=== PATIENT | male | born 1960 | race Caucasian/White ===

== ENCOUNTER 2017-08-21 14:17 | Inpatient (IN) | payer BC, OTHER ==
[2017-08-21] VITALS (8 sets, daily range): BP systolic 137–156; BP diastolic 78–92; PULSE 72–85; RESP 16–22; TEMP 98–98.4; O2SAT 92–97
[~2017-08-21] VITALS: Ht 180.3 cm; Wt 112.0 kg
[~2017-08-21 14:17] MED LIST: ATEN-100 PO; ESZO3 PO; FENO1TAB76 PO; LAMI200T PO; LEVA250T14 PO; LIPI80TA16 PO; LORA0.5T PO; NITR0.2D TD; OMEG1CAP53 PO; SERO100T PO; SERT100 PO; TRAM100T19 PO; VERA27.5
[2017-08-21] MEDS ORDERED: methylPREDNISolone SOD SUCC 125 MG/2 ML VIAL IV PUSH ONE (14:45)
[2017-08-21] MEDS ORDERED: SODIUM CHLORIDE 0.9% FLUSH 10 ML FLUSH IVF PRN (14:45)
[2017-08-21] MEDS: RESP: ALBUTEROL 2.5 MG/3 ML NEB (SCH) INH ×2 (14:45→15:00)
--- NOTE | 2017-08-21 14:54 | PD ---
HPI Chief Complaint: Chest Pain Time Seen by Provider: 14:44 Travel History International Travel<30 days: No Contact w/Intl Traveler<30days: No Traveled to known affect area: No History of Present Illness HPI 57-year-old male with PMH of CAD s/p stenting of the LAD presents to the ED for evaluation of sudden onset of central chest pain at 1355 while at rest Pain is described as sharp, nonradiating, accompanied by shortness of breath, diaphoresis. Patient denies palpitations, nausea. Patient states he was feeling in good health before onset of this pain. Denies coughing or hemoptysis. He states that he vapes tobacco. He took 325 mg of aspirin and sublingual nitroglycerin 3 with no improvement of symptoms. He denies other chronic medical problems. 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 Repeat every 5 minutes for a total of 3 DOSES or call 911 if NO relief. Lipitor (Atorvastatin Calcium) 80 Mg Tab 80 Mg PO HS Tenormin (Atenolol) 25 Mg Tab 25 Mg PO BID Tricor (Fenofibrate) 145 Mg Tab 145 Mg PO DAILY Take with food. Nabumetone 750 Mg Tab 750 Mg PO BID Zoloft (Sertraline HCl) 100 Mg Tab 200 Mg PO DAILY Lamictal (Lamotrigine) 200 Mg Tab 200 Mg PO DAILY Seroquel (Quetiapine Fumarate) 100 Mg Tab 100 Mg PO BID Review of Systems Except as stated in HPI: all other systems reviewed are Neg Physical Exam Narrative GENERAL: Well-nourished, well-developed white male in no acute distress. SKIN: Focused skin assessment warm, diaphoretic HEAD: Normocephalic. EYES: No scleral icterus. No injection or drainage. NECK: Supple, trachea midline. No JVD or lymphadenopathy. CARDIOVASCULAR: Regular rate and rhythm without murmurs, gallops, or rubs. RESPIRATORY: Breath sounds diminished in the right lower lobe. Wet sounding cough. No accessory muscle use. GASTROINTESTINAL: Abdomen soft, nondistended. Tender in the epigastric region. Active bowel sounds. MUSCULOSKELETAL: No cyanosis, or edema. BACK: Nontender without obvious deformity. No CVA tenderness. Data Data Last Documented VS Vital Signs Date Time Temp Pulse Resp B/P (MAP) Pulse Ox O2 Delivery O2 Flow Rate FiO2 08/21/17 15:39 96 3.00 08/21/17 14:41 Nasal Cannula 08/21/17 14:41 98.0 80 16 138/87 (104) Orders Orders Electrocardiogram (08/21/17 14:36) B-Type Natriuretic Peptide (08/21/17 14:36) Ckmb (Isoenzyme) Profile (08/21/17 14:36) Complete Blood Count With Diff (08/21/17 14:36) Comprehensive Metabolic Panel (08/21/17 14:36) Magnesium (Mg) (08/21/17 14:36) Prothrombin Time / Inr (Pt) (08/21/17 14:36) Act Partial Throm Time (Ptt) (08/21/17 14:36) Troponin I (08/21/17 14:36) Chest, Single Ap (08/21/17 14:36) Ecg Monitoring (08/21/17 14:36) Bilateral Bp Monitoring (08/21/17 14:36) Iv Access Insert/Monitor (08/21/17 14:36) Oximetry (08/21/17 14:36) Oxygen Administration (08/21/17 14:36) Sodium Chloride 0.9% Flush (Ns Flush) (08/21/17 14:45) Methylprednisolone So Succ Inj (Solumedr (08/21/17 14:45) Albuterol Neb (Albuterol Neb) (08/21/17 14:45) Midazolam Inj (Versed Inj) (08/21/17 15:15) Hydromorphone Pf Inj (Dilaudid Pf Inj) (08/21/17 15:15) Chest, Single Ap (08/21/17 ) CKMB (08/21/17 14:30) CKMB% (08/21/17 14:30) Hydromorphone Pf Inj (Dilaudid Pf Inj) (08/21/17 16:00) Admit To Inpatient (08/21/17 ) Code Status (08/21/17 16:18) Vital Signs (Adult) Q4H (08/21/17 16:18) Activity Oob With Assistance (08/21/17 16:18) Supervisor [employer] / Telemetry .CONTINUOUS (08/21/17 16:18) Diet Heart Healthy (08/21/17 Dinner) Sodium Chloride 0.9% Flush (Ns Flush) (08/21/17 16:30) Sodium Chloride 0.9% Flush (Ns Flush) (08/21/17 21:00) Acetaminophen (Tylenol) (08/21/17 16:30) Ondansetron Inj (Zofran Inj) (08/21/17 16:30) Temazepam (Restoril) (08/21/17 16:30) Basic Metabolic Panel (Bmp) (08/22/17 06:00) Complete Blood Count With Diff (08/22/17 06:00) Chest, Single Ap (08/22/17 08:00) Electrocardiogram (08/21/17:18) Resp Oxygen Ralf C Titrat 1-4 L (08/21/17 ) Pt Request For Service (08/21/17 16:18) Scd Bilateral/Knee High EUGENIA.BID (08/21/17 16:18) Naloxone Inj (Narcan Inj) (08/21/17 16:30) Magnesium Hydroxide Liq (Milk Of Magnesi (08/21/17 16:30) Inpatient Certification (08/21/17 ) Atenolol (Tenormin) (08/21/17 21:00) Atorvastatin (Lipitor) (08/21/17 21:00) Fenofibrate (Tricor) (08/21/17 16:30) Lamotrigine (Lamictal) (08/22/17 09:00) Nitroglycerin Sl (Nitrostat Sl) (08/21/17 16:30) Quetiapine (Seroquel) (08/21/17 21:00) Sertraline (Zoloft) (08/22/17 09:00) Admit Order (Ed Use Only) (08/21/17 16:26) Labs Laboratory Tests Test 08/21/17 14:30 White Blood Count 6.0 TH/MM3 Red Blood Count 4.41 MIL/MM3 Hemoglobin 13.5 GM/DL Hematocrit 38.0 % Mean Corpuscular Volume 86.3 FL Mean Corpuscular Hemoglobin 30.6 PG Mean Corpuscular Hemoglobin Concent 35.5 % Red Cell Distribution Width 14.1 % Platelet Count 248 TH/MM3 Mean Platelet Volume 8.5 FL Neutrophils (%) (Auto) 64.2 % Lymphocytes (%) (Auto) 24.3 % Monocytes (%) (Auto) 8.4 % Eosinophils (%) (Auto) 2.3 % Basophils (%) (Auto) 0.8 % Neutrophils # (Auto) 3.9 TH/MM3 Lymphocytes # (Auto) 1.5 TH/MM3 Monocytes # (Auto) 0.5 TH/MM3 Eosinophils # (Auto) 0.1 TH/MM3 Basophils # (Auto) 0.0 TH/MM3 CBC Comment DIFF FINAL Differential Comment Prothrombin Time 10.5 SEC Prothromb Time International Ratio 1.0 RATIO Activated Partial Thromboplast Time 23.1 SEC Blood Urea Nitrogen 11 MG/DL Creatinine 1.16 MG/DL Random Glucose 119 MG/DL Total Protein 7.3 GM/DL Albumin 4.2 GM/DL Calcium Level 9.0 MG/DL Magnesium Level 2.0 MG/DL Alkaline Phosphatase 83 U/L Aspartate Amino Transf (AST/SGOT) 22 U/L Alanine Aminotransferase (ALT/SGPT) 43 U/L Total Bilirubin 0.5 MG/DL Sodium Level 141 MEQ/L Potassium Level 4.0 MEQ/L Chloride Level 109 MEQ/L Carbon Dioxide Level 25.2 MEQ/L Anion Gap 7 MEQ/L Estimat Glomerular Filtration Rate 65 ML/MIN Total Creatine Kinase 140 U/L Creatine Kinase MB 2.7 NG/ML Troponin I LESS THAN 0.02 NG/ML B-Type Natriuretic Peptide 29 PG/ML MDM Medical Decision Making Medical Screen Exam Complete: Yes Emergency Medical Condition: Yes Differential Diagnosis Angina versus chest pain versus CHF versus pneumonia versus pneumothorax versus other Narrative Course 57-year-old male with PMH of CAD s/p stenting of the LAD presents to the ED for evaluation of sudden onset of central chest pain at 1355 while at rest Pain is described as sharp, nonradiating, accompanied by shortness of breath, diaphoresis. He states that he vapes tobacco. He took 325 mg of aspirin and sublingual nitroglycerin 3 with no improvement of symptoms. Pulse 85, BP 138/ 87, pulse ox 92% on room air on presentation. Patient was placed on 2 L by nasal cannula. On exam this is a diaphoretic obese white male in no acute distress. No appreciable M/R/G. He does have diminished breath sounds on the right. He also has a wet sounding cough. Abdomen soft, mild tenderness in the epigastric region. No lower extremity edema. IV was established. Patient was administered 125 mg Solu-Medrol and DuoNeb 2. EKG rate 76, sinus rhythm. KS interval 206, QRS 112, QTC 407. Normal axis. No acute ST changes. Reviewed by Dr. Cox. CXR: Large right-sided pneumothorax with complete collapse of the right long and minimal mediastinal shift to the left suggesting some degree of tension per radiology read. Dr. Cox inserted a chest tube. O2 sats improved to 96%. Repeat CXR reveals interval reinflation of the right lung post chest tube placement per radiology read. No concerning abnormalities of the CBC, coags or CMP. Cardiac enzymes negative 1. BNP 29. Patient is agreeable to admission for chest tube management. I spoke with Dr. Vaughan who agrees to accept the patient to the medicine service. Please see medicine notes for disposition. Re Rios Aug 21, 2017 14:54
--- NOTE | 2017-08-21 15:07 | RADRPT ---
EXAM DATE/TIME: 08/21/2017 14:43 [facility] COMPARISON: CHEST SINGLE AP, September 21, 2014, 0:47. INDICATIONS : Chest pain. MEDICAL HISTORY : None. SURGICAL HISTORY : None. ENCOUNTER: Initial ACUITY: 1 day PAIN SCORE: 5/10 LOCATION: Bilateral chest FINDINGS: There is a very large right-sided pneumothorax with complete collapse of the right lung. There is min imal mediastinal shift to the left suggesting some degree of tension. CONCLUSION: Very large right-sided pneumothorax with complete collapse of the right lung and minimal mediastinal shift to the left suggesting some degree of tension. Dr. Cox was called with the findings 3: 05 P.M. on 08/21/17. Krishan Roberts MD on August 21, 2017 at 15:00 Board Certified Radiologist. This report was verified electronically.
[2017-08-21] MEDS ORDERED: MIDAZOLAM HCL 2 MG/2 ML VIAL IV PUSH ONE (15:15)
[2017-08-21] MEDS ORDERED: HYDROmorphone HCL PF 2 MG/ML VIAL IV PUSH ONE ×3 (15:15→17:00)
[2017-08-21 15:24] LABS: PROTHROMBIN TIME - PATIENT 10.5 SEC (9.8-11.6)
[2017-08-21] MEDS ORDERED: LAMI200T PO (15:30)
[2017-08-21] MEDS ORDERED: NABU1TAB33 PO (15:30)
[2017-08-21] MEDS ORDERED: LORA-474 PO (15:30)
[2017-08-21] MEDS ORDERED: NITR0.4S SL (15:30)
[2017-08-21] MEDS ORDERED: ATEN1TAB73 PO (15:30)
[2017-08-21] MEDS ORDERED: LIPI80TA PO (15:30)
[2017-08-21] MEDS ORDERED: ZOLO100T PO (15:30)
[2017-08-21] MEDS ORDERED: FENO50TA PO (15:30)
[2017-08-21] MEDS ORDERED: SERO100T PO (15:30)
[2017-08-21 15:31] LABS: AUTOMATED NEUTROPHIL # 3.9 TH/MM3 (1.8-7.7); BASOPHIL % 0.8 % (0.0-2.0); EOSINOPHIL # 0.1 TH/MM3 (0-0.4); EOSINOPHIL % 2.3 % (0.0-4.0); HEMOGLOBIN 13.5 GM/DL (13.0-17.0); LYMPH % 24.3 % (9.0-44.0); LYMPHOCYTE # 1.5 TH/MM3 (1.0-4.8); MEAN CELL VOLUME 86.3 FL (80.0-100.0); MEAN CORPUSCULAR HEMOGLOBIN 30.6 PG (27.0-34.0); MEAN CORPUSCULAR HGB CONC 35.5 % (32.0-36.0); MEAN PLATELET VOLUME 8.5 FL (7.0-11.0); MONO % 8.4 % (0.0-8.0); MONOCYTE # 0.5 TH/MM3 (0-0.9); NEUT % 64.2 % (16.0-70.0); PLATELET COUNT 248 TH/MM3 (150-450); RED BLOOD COUNT 4.41 MIL/MM3 (4.50-5.90); RED CELL DISTRIBUTION WIDTH 14.1 % (11.6-17.2)
[2017-08-21 15:33] LABS: ALBUMIN 4.2 GM/DL (3.4-5.0); ALT (GPT) 43 U/L (12-78); AST (GOT) 22 U/L (15-37); BICARBONATE 25.2 MEQ/L (21.0-32.0); BLOOD UREA NITROGEN 11 MG/DL (7-18); CHLORIDE 109 MEQ/L (98-107); CREATININE 1.16 MG/DL (0.60-1.30); GLOMERULAR FILTRATION RATE 65 ML/MIN (>89); GLUCOSE,RANDOM 119 MG/DL (74-106); SODIUM (NA) 141 MEQ/L (136-145)
[2017-08-21 15:37] LABS: ALKALINE PHOSPHATASE 83 U/L (45-117); TOTAL BILIRUBIN ADULT 0.5 MG/DL (0.2-1.0); TOTAL PROTEIN 7.3 GM/DL (6.4-8.2); TROPONIN I LESS THAN 0.02 NG/ML (0.02-0.05)
--- NOTE | 2017-08-21 15:47 | PD ---
Physical Exam Narrative I, Dr. Cox, have reviewed the advance practice practitioner's documentation and am in agreement, met with the patient face to face, made the diagnosis, and the medical decision making was done by me. *My assessment and Findings: Patient is a 57-year-old male who comes in complaining of chest pain. He says it is either "a heart attack or my lung is collapsed." This started just prior to arrival. He does report some shortness of breath. He denies any trauma, he does vape. Exam shows decreased breath sounds on the right. Data Data Last Documented VS Vital Signs Date Time Temp Pulse Resp B/P (MAP) Pulse Ox O2 Delivery O2 Flow Rate FiO2 08/21/17 15:39 96 3.00 08/21/17 14:41 Nasal Cannula 08/21/17 14:41 98.0 80 16 138/87 (104) Orders Orders Electrocardiogram (08/21/17 14:36) B-Type Natriuretic Peptide (08/21/17 14:36) Ckmb (Isoenzyme) Profile (08/21/17 14:36) Complete Blood Count With Diff (08/21/17 14:36) Comprehensive Metabolic Panel (08/21/17 14:36) Magnesium (Mg) (08/21/17 14:36) Prothrombin Time / Inr (Pt) (08/21/17 14:36) Act Partial Throm Time (Ptt) (08/21/17 14:36) Troponin I (08/21/17 14:36) Chest, Single Ap (08/21/17 14:36) Ecg Monitoring (08/21/17 14:36) Bilateral Bp Monitoring (08/21/17 14:36) Iv Access Insert/Monitor (08/21/17 14:36) Oximetry (08/21/17 14:36) Oxygen Administration (08/21/17 14:36) Sodium Chloride 0.9% Flush (Ns Flush) (08/21/17 14:45) Methylprednisolone So Succ Inj (Solumedr (08/21/17 14:45) Albuterol Neb (Albuterol Neb) (08/21/17 14:45) Midazolam Inj (Versed Inj) (08/21/17 15:15) Hydromorphone Pf Inj (Dilaudid Pf Inj) (08/21/17 15:15) Chest, Single Ap (08/21/17 ) CKMB (08/21/17 14:30) CKMB% (08/21/17 14:30) Hydromorphone Pf Inj (Dilaudid Pf Inj) (08/21/17 16:00) Admit To Inpatient (08/21/17 ) Code Status (08/21/17 16:18) Vital Signs (Adult) Q4H (08/21/17:18) Activity Oob With Assistance (08/21/17 16:18) 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 .CONTINUOUS (08/21/17 16:18) Diet Heart Healthy (08/21/17 Dinner) Sodium Chloride 0.9% Flush (Ns Flush) (08/21/17 16:30) Sodium Chloride 0.9% Flush (Ns Flush) (08/21/17 21:00) Acetaminophen (Tylenol) (08/21/17 16:30) Ondansetron Inj (Zofran Inj) (08/21/17 16:30) Temazepam (Restoril) (08/21/17 16:30) Basic Metabolic Panel (Bmp) (08/22/17 06:00) Complete Blood Count With Diff (08/22/17 06:00) Chest, Single Ap (08/22/17 08:00) Electrocardiogram (08/21/17:18) Resp Oxygen Ralf C Titrat 1-4 L (08/21/17 ) Pt Request For Service (08/21/17 16:18) Scd Bilateral/Knee High EUGENIA.BID (08/21/17 16:18) Naloxone Inj (Narcan Inj) (08/21/17 16:30) Magnesium Hydroxide Liq (Milk Of Magnesi (08/21/17 16:30) Inpatient Certification (08/21/17 ) Atenolol (Tenormin) (08/21/17 21:00) Atorvastatin (Lipitor) (08/21/17 21:00) Fenofibrate (Tricor) (08/21/17 16:30) Lamotrigine (Lamictal) (08/22/17 09:00) Nitroglycerin Sl (Nitrostat Sl) (08/21/17 16:30) Quetiapine (Seroquel) (08/21/17 21:00) Sertraline (Zoloft) (08/22/17 09:00) Admit Order (Ed Use Only) (08/21/17 16:26) Labs Laboratory Tests Test 08/21/17 14:30 White Blood Count 6.0 TH/MM3 Red Blood Count 4.41 MIL/MM3 Hemoglobin 13.5 GM/DL Hematocrit 38.0 % Mean Corpuscular Volume 86.3 FL Mean Corpuscular Hemoglobin 30.6 PG Mean Corpuscular Hemoglobin Concent 35.5 % Red Cell Distribution Width 14.1 % Platelet Count 248 TH/MM3 Mean Platelet Volume 8.5 FL Neutrophils (%) (Auto) 64.2 % Lymphocytes (%) (Auto) 24.3 % Monocytes (%) (Auto) 8.4 % Eosinophils (%) (Auto) 2.3 % Basophils (%) (Auto) 0.8 % Neutrophils # (Auto) 3.9 TH/MM3 Lymphocytes # (Auto) 1.5 TH/MM3 Monocytes # (Auto) 0.5 TH/MM3 Eosinophils # (Auto) 0.1 TH/MM3 Basophils # (Auto) 0.0 TH/MM3 CBC Comment DIFF FINAL Differential Comment Prothrombin Time 10.5 SEC Prothromb Time International Ratio 1.0 RATIO Activated Partial Thromboplast Time 23.1 SEC Blood Urea Nitrogen 11 MG/DL Creatinine 1.16 MG/DL Random Glucose 119 MG/DL Total Protein 7.3 GM/DL Albumin 4.2 GM/DL Calcium Level 9.0 MG/DL Magnesium Level 2.0 MG/DL Alkaline Phosphatase 83 U/L Aspartate Amino Transf (AST/SGOT) 22 U/L Alanine Aminotransferase (ALT/SGPT) 43 U/L Total Bilirubin 0.5 MG/DL Sodium Level 141 MEQ/L Potassium Level 4.0 MEQ/L Chloride Level 109 MEQ/L Carbon Dioxide Level 25.2 MEQ/L Anion Gap 7 MEQ/L Estimat Glomerular Filtration Rate 65 ML/MIN Total Creatine Kinase 140 U/L Creatine Kinase MB 2.7 NG/ML Troponin I LESS THAN 0.02 NG/ML B-Type Natriuretic Peptide 29 PG/ML [facility] Supervised Visit with JOSE: Yes Narrative Course Chest x-ray shows complete pneumothorax on the right. Chest tube placed without incident, patient reports feeling better, lung did reinflate. He will be admitted for further management. Procedures Procedure Narrative CHEST TUBE THORACOSTOMY: The right chest was prepped with Betadine and sterilely draped. The area of the fifth intercostal interspace was infiltrated with 1% lidocaine plain. A 2 centimeter incision was made with a scalpel at the fifth intercostal space. Blunt dissection to the fourth intercostal interspace performed and the pleura was punctured with immediate juan of air. Finger was inserted in the space and thoracostomy tube was placed, directed posteriorly and superiorly. Tube draining well. The thoracostomy tube was secured with suture. Sterile seal dressing placed. Patient tolerated procedure well. Diagnosis Primary Impression: Pneumothorax Qualified Codes: J93.9 - Pneumothorax, unspecified Admitting Information Admitting Physician Requests: Admit Mayra Cox MD Aug 21, 2017 15:47
--- NOTE | 2017-08-21 16:04 | RADRPT ---
EXAM DATE/TIME: 08/21/2017 15:53 [facility] COMPARISON: CHEST SINGLE AP, August 21, 2017, 14:43. INDICATIONS : Pneumothorax, chest tube placement. MEDICAL HISTORY : Myocardial infarction. SURGICAL HISTORY : None. ENCOUNTER: Subsequent ACUITY: 1 day PAIN SCORE: 4/10 LOCATION: Right chest FINDINGS: There is interval placement of a right-sided chest tube. There has been reexpansion of the right lung . The left lung is clear. The heart is normal in size. The osseous structures are intact. CONCLUSION: 1. Interval reinflation of the right lung post chest tube placement. Alfredo Blackmon MD on August 21, 2017 at 16:01 Board Certified Radiologist. This report was verified electronically.
[2017-08-21] MEDS ORDERED: TEMAZEPAM 15 MG CAP PO PRN (16:30)
[2017-08-21] MEDS ORDERED: NALOXONE HCL 0.4 MG/ML AMP IV PUSH PRN (16:30)
[2017-08-21] MEDS ORDERED: ACETAMINOPHEN 325 MG TAB PO PRN (16:30)
[2017-08-21] MEDS ORDERED: SODIUM CHLORIDE 0.9% FLUSH 10 ML FLUSH IV FLUSH PRN (16:30)
[2017-08-21] MEDS ORDERED: NITROGLYCERIN 0.4 MG SL 25 TABS/BTL SL PRN (16:30)
[2017-08-21] MEDS ORDERED: ONDANSETRON HCL 4 MG/2 ML VIAL IVP PRN (16:30)
[2017-08-21] MEDS ORDERED: ACETAMINOPHEN/HYDROcodone 325 MG/5 MG TAB PO PRN (17:00)
[2017-08-21] MEDS: ATENOLOL 25 MG TAB PO SCH (20:10)
[2017-08-21] MEDS: ATORVASTATIN 80 MG TAB PO SCH (20:10)
[2017-08-21] MEDS: FENOFIBRATE 145 MG TAB PO SCH (20:10)
[2017-08-21] MEDS: QUEtiapine FUMARATE 100 MG TAB PO SCH (20:10)
[2017-08-21] MEDS: SODIUM CHLORIDE 0.9% FLUSH 10 ML FLUSH IV FLUSH SCH (20:10)
[2017-08-21] MEDS: ACETAMINOPHEN/HYDROcodone 325 MG/10 MG TAB PO PRN (22:36)
[2017-08-21] MEDS: LORazepam 1 MG TAB PO PRN (23:24)
[2017-08-22] VITALS (18 sets, daily range): BP systolic 149–171; BP diastolic 81–90; PULSE 53–77; RESP 18–20; TEMP 97.6–98.5; O2SAT 94–98
[2017-08-22] MEDS: MORPHINE SULFATE 4 MG/ML INJ IV PRN ×5 (01:16→20:44)
[2017-08-22] MEDS: ACETAMINOPHEN/HYDROcodone 325 MG/10 MG TAB PO PRN (05:24)
[2017-08-22 07:26] LABS: AUTOMATED NEUTROPHIL # 6.4 TH/MM3 (1.8-7.7); BASOPHIL % 0.1 % (0.0-2.0); EOSINOPHIL % 0.1 % (0.0-4.0); HEMATOCRIT 36.3 % (39.0-51.0); HEMOGLOBIN 12.6 GM/DL (13.0-17.0); LYMPH % 11.2 % (9.0-44.0); LYMPHOCYTE # 0.9 TH/MM3 (1.0-4.8); MEAN CELL VOLUME 86.2 FL (80.0-100.0); MEAN CORPUSCULAR HEMOGLOBIN 29.9 PG (27.0-34.0); MEAN CORPUSCULAR HGB CONC 34.7 % (32.0-36.0); MEAN PLATELET VOLUME 8.4 FL (7.0-11.0); MONO % 5.7 % (0.0-8.0); MONOCYTE # 0.4 TH/MM3 (0-0.9); NEUT % 82.9 % (16.0-70.0); PLATELET COUNT 240 TH/MM3 (150-450); RED BLOOD COUNT 4.21 MIL/MM3 (4.50-5.90); RED CELL DISTRIBUTION WIDTH 13.8 % (11.6-17.2); WHITE BLOOD COUNT 7.8 TH/MM3 (4.0-11.0)
[2017-08-22 07:56] LABS: BICARBONATE 24.9 MEQ/L (21.0-32.0); CALCIUM 8.6 MG/DL (8.5-10.1); CREATININE 1.11 MG/DL (0.60-1.30)
[2017-08-22] MEDS: SODIUM CHLORIDE 0.9% FLUSH 10 ML FLUSH IV FLUSH SCH ×2 (09:00→20:45)
--- NOTE | 2017-08-22 09:09 | HHI.HP ---
HPI Service [facility] Hospitalists Primary Care Physician Jarret Serra MD Admission Diagnosis spontaneous pneumothorax Chief Complaint: Chest pain Travel History International Travel<30 Days: No Contact w/Intl Traveler <30 Da: No Traveled to Known Affected Are: No History of Present Illness This is a 57-year-old male patient with past medical history which includes CAD status post IN in 1998 with stent placement, repeat cardiac catheterization around 2011 pound stent restenosis treated medically, detached retina, left clavicle fracture, hypertension, hyperlipidemia, bipolar, migraines and osteoarthritis. She presented to the emergency room department yesterday after having sudden onset of central chest pain approximately 2 PM while at rest. Patient described the chest pain as sharp nonradiating, being by shortness of breath and diaphoresis. Patient reports prior to the sudden onset of chest pain he was in his normal state of health denies fevers chills nausea vomiting diarrhea constipation. Patient take aspirin 325 mg at home and sublingual nitroglycerin 3 with no improvement of symptoms therefore he proceeded to the emergency department. Chest x-ray was taken and revealed very large right- sided pneumothorax with complete collapse of the right lung and minimal mediastinal shift to the left suggesting some degree of tension. Chest tube was placed in the emergency department. Repeat chest x-ray revealed interval reinflation of the right lung post chest tube placement. Patient reports he is no longer having the severe midsternal chest pain that brought him to the emergency department. Patient c/o back pain R>L. Patient describes the pain as , "inside...feels like the muscles are tight." Pain decreased with morphine. Review of Systems Constitutional: COMPLAINS OF: Diaphoretic episodes, DENIES: Fever, Chills Eyes: DENIES: Blurred vision, Diplopia Respiratory: COMPLAINS OF: Shortness of breath, DENIES: Cough Cardiovascular: COMPLAINS OF: Chest pain, DENIES: Palpitations, Lower Extremity Edema Gastrointestinal: DENIES: Abdominal pain, Constipation, Diarrhea, Nausea, Vomiting Neurologic: DENIES: Abnormal gait, Headache, Localized weakness Psychiatric: DENIES: Anxiety, Confusion, Depression Past Family Social History Past Medical History CAD status post IN in 1999 with stent placement, repeat cardiac catheterization 2011 pound stent restenosis treated medically, detached retina, left clavicle fracture, hypertension, hyperlipidemia, bipolar, migraines and osteoarthritis. Past Surgical History Cardiac catheterization in 1999 with stent placement, repeat cardiac catheterization 2011 with stent restenosis treated medically Repair of right retinal detachment Right ankle surgery and repair Reported Medications Ativan (Lorazepam) 1 Mg Tab 1 Mg PO TID PRN Nitrostat SL (Nitroglycerin) 0.4 Mg Subl 0.4 Mg SL DIRECTED PRN 1 tablet under the tongue as needed for chest pain. Repeat every 5 minutes for a total of 3 DOSES or call 911 if NO relief. Lipitor (Atorvastatin Calcium) 80 Mg Tab 80 Mg PO HS Tenormin (Atenolol) 25 Mg Tab 25 Mg PO BID Tricor (Fenofibrate) 145 Mg Tab 145 Mg PO DAILY Take with food. Nabumetone 750 Mg Tab 750 Mg PO BID Zoloft (Sertraline HCl) 100 Mg Tab 200 Mg PO DAILY Lamictal (Lamotrigine) 200 Mg Tab 200 Mg PO DAILY Seroquel (Quetiapine Fumarate) 100 Mg Tab 100 Mg PO BID Allergies: Coded Allergies: penicillin G (Verified Allergy, Intermediate, Hives, 08/21/17) Active Ordered Medications Current Medications Medications (Trade) Dose Ordered Sig/Emmanuelle Route Start Time Stop Time Status Last Admin (NS Flush) 2 ml UNSCH PRN IVF 08/21/17 14:45 08/21/17 14:44 (NS Flush) 2 ml UNSCH PRN IV FLUSH 08/21/17 16:30 (NS Flush) 2 ml BID IV FLUSH 08/21/17 21:00 (Tylenol) 650 mg Q4H PRN PO 08/21/17 16:30 (Zofran Inj) 4 mg Q6H PRN IVP 08/21/17 16:30 (Restoril) 15 mg HS PRN PO 08/21/17 16:30 08/22/17 00:17 (Narcan Inj) 0.4 mg UNSCH PRN IV PUSH 08/21/17 16:30 (Milk Of Magnesia Liq) 30 ml Q12H PRN PO 08/21/17 16:30 (Tenormin) 25 mg BID PO 08/21/17 21:00 08/21/17 20:10 (Lipitor) 80 mg HS PO 08/21/17 21:00 08/21/17 20:10 (Tricor) 145 mg DAILY PO 08/21/17 16:30 08/21/17 20:10 (LaMICtal) 200 mg DAILY PO 08/22/17 09:00 (Nitrostat Sl) 0.4 mg Q1H PRN SL 08/21/17 16:30 (SEROquel) 100 mg BID PO 08/21/17 21:00 08/21/17 20:10 (Zoloft) 200 mg DAILY PO 08/22/17 09:00 (Morse 10-325 Mg) 1 tab Q4H PRN PO 08/21/17 21:30 08/22/17 05:24 (Ativan) 1 mg Q8H PRN PO 08/21/17 21:30 08/21/17 23:24 (Morphine Inj) 4 mg Q4H PRN IV 08/22/17 01:00 08/22/17 07:49 Family History Mother secondary CAD she also had history of emphysema and tobacco abuse Sister had IN at age 51 Social History Patient is he has no 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 Currently using E cigarettes/Vaping Denies EtOH use or illicit drug use Physical Exam Vital Signs Vital Signs Date Time Temp Pulse Resp B/P (MAP) Pulse Ox O2 Delivery O2 Flow Rate FiO2 08/22/17 08:00 98.0 61 18 161/89 (113) 95 08/22/17 06:00 77 08/22/17 05:00 61 08/22/17 04:00 65 08/22/17 03:00 97.6 64 18 156/82 (106) 97 08/22/17 03:00 64 08/22/17 02:00 67 08/22/17 01:21 18 08/22/17 01:00 60 08/22/17 00:00 72 08/21/17 23:36 20 08/21/17 23:00 76 08/21/17 23:00 98.2 75 22 137/83 (101) 94 08/21/17 22:00 72 08/21/17 21:00 98.2 79 20 156/92 (113) 95 08/21/17 21:00 76 08/21/17 20:00 96 Nasal Cannula 3.00 08/21/17 19:34 20 08/21/17 19:20 98.4 73 22 148/78 (101) 97 Room Air 08/21/17 15:39 96 3.00 08/21/17 14:41 94 Nasal Cannula 2.00 08/21/17 14:41 98.0 80 16 138/87 (104) 94 Nasal Cannula 2.00 08/21/17 14:28 80 18 93 Nasal Cannula 2.00 08/21/17 14:25 85 16 138/87 (104) 92 Physical Exam GENERAL: This is a well-nourished, well-developed patient, in no apparent distress. SKIN: No rashes, ecchymoses or lesions. Cool and dry. HEAD: Atraumatic. Normocephalic. No temporal or scalp tenderness. EYES: Extraocular motions intact. No scleral icterus. No injection or drainage. CARDIOVASCULAR: Regular rate and rhythm RESPIRATORY: Clear to auscultation. Breath sounds equal bilaterally. Chest tube in place with air leak present GASTROINTESTINAL: Abdomen soft, non-tender, nondistended. No hepato-splenomegaly , or palpable masses. No guarding. MUSCULOSKELETAL: Extremities without clubbing, cyanosis, or edema. No joint tenderness, effusion, or edema noted. No calf tenderness. Negative Homans sign bilaterally. NEUROLOGICAL: Awake and alert. Motor and sensory grossly within normal limits. Five out of 5 muscle strength in all muscle groups. Normal speech. Laboratory Laboratory Tests Test 08/21/17 14:30 08/22/17 06:46 08/22/17 06:49 White Blood Count 6.0 7.8 Red Blood Count 4.41 4.21 Hemoglobin 13.5 12.6 Hematocrit 38.0 36.3 Mean Corpuscular Volume 86.3 86.2 Mean Corpuscular Hemoglobin 30.6 29.9 Mean Corpuscular Hemoglobin Concent 35.5 34.7 Red Cell Distribution Width 14.1 13.8 Platelet Count 248 240 Mean Platelet Volume 8.5 8.4 Neutrophils (%) (Auto) 64.2 82.9 Lymphocytes (%) (Auto) 24.3 11.2 Monocytes (%) (Auto) 8.4 5.7 Eosinophils (%) (Auto) 2.3 0.1 Basophils (%) (Auto) 0.8 0.1 Neutrophils # (Auto) 3.9 6.4 Lymphocytes # (Auto) 1.5 0.9 Monocytes # (Auto) 0.5 0.4 Eosinophils # (Auto) 0.1 0.0 Basophils # (Auto) 0.0 0.0 CBC Comment DIFF FINAL DIFF FINAL Differential Comment Prothrombin Time 10.5 Prothromb Time International Ratio 1.0 Activated Partial Thromboplast Time 23.1 Blood Urea Nitrogen 11 15 Creatinine 1.16 1.11 Random Glucose 119 239 Total Protein 7.3 Albumin 4.2 Calcium Level 9.0 8.6 Magnesium Level 2.0 Alkaline Phosphatase 83 Aspartate Amino Transf (AST/SGOT) 22 Alanine Aminotransferase (ALT/SGPT) 43 Total Bilirubin 0.5 Sodium Level 141 137 Potassium Level 4.0 4.1 Chloride Level 109 103 Carbon Dioxide Level 25.2 24.9 Anion Gap 7 9 Estimat Glomerular Filtration Rate 65 68 Total Creatine Kinase 140 Creatine Kinase MB 2.7 Troponin I LESS THAN 0.02 B-Type Natriuretic Peptide 29 Result Diagram: 08/22/17 0649 08/22/17 0646 Imaging Last Impressions Chest X-Ray 08/21/17 1436 Signed Impressions: Service Date/Time: Monday, August 21, 2017 14:43 - CONCLUSION: Very large right-sided pneumothorax with complete collapse of the right lung and minimal mediastinal shift to the left suggesting some degree of tension. Dr. Cox was called with the findings 3: 05 P.M. on 08/21/17. MD Brody Crawleyi VTE Risk Assessment Caprini VTE Risk Assessment: No/Low Risk (score <= 1) Caprini Risk Assessment Model Point Value = 1 Point Value = 2 Point Value = 3 Point Value = 5 Age 41-60 Minor surgery BMI > 25 kg/m2 Swollen legs Varicose veins or History of unexplained or recurrent spontaneous Oral contraceptives or hormone replacement Sepsis (< 1 month) Serious lung disease, including pneumonia (< 1 month) Abnormal pulmonary function Acute myocardial infarction Congestive heart failure (< 1 month) History of inflammatory bowel disease Medical patient at bed rest Age 61-74 Arthroscopic surgery Major open surgery (> 45 min) Laparoscopic surgery (> 45 min) Malignancy Confined to bed (> 72 hours) Immobilizing plaster cast Central venous access Age >= 75 History of VTE Family history of VTE Factor V Leiden Prothrombin [id number] Lupus anticoagulant Anticardiolipin antibodies Elevated serum homocysteine Heparin-induced thrombocytopenia Other congenital or acquired thrombophilia Stroke (< 1 month) Elective arthroplasty Hip, pelvis, or leg fracture Acute spinal cord injury (< 1 month) Prophylaxis Regimen Total Risk Factor Score Risk Level Prophylaxis Regimen 0-1 Low Early ambulation 2 Moderate Order ONE of the following: *Sequential Compression Device (SCD) *Heparin 5000 units SQ BID 3-4 Higher Order ONE of the following medications: *Heparin 5000 units SQ TID *Enoxaparin/Lovenox 40 mg SQ daily (WT < 150 kg, CrCl > 30 mL/min) *Enoxaparin/Lovenox 30 mg SQ daily (WT < 150 kg, CrCl > 10-29 mL/min) *Enoxaparin/Lovenox 30 mg SQ BID (WT < 150 kg, CrCl > 30 mL/min) AND/OR *Sequential Compression Device (SCD) 5 or more Highest Order ONE of the following medications: *Heparin 5000 units SQ TID (Preferred with Epidurals) *Enoxaparin/Lovenox 40 mg SQ daily (WT < 150 kg, CrCl > 30 mL/min) *Enoxaparin/Lovenox 30 mg SQ daily (WT < 150 kg, CrCl > 10-29 mL/min) *Enoxaparin/Lovenox 30 mg SQ BID (WT < 150 kg, CrCl > 30 mL/min) AND *Sequential Compression Device (SCD) Assessment and Plan Problem List: (1) Pneumothorax ICD Codes: J93.9 - Pneumothorax, unspecified Status: Acute Plan: sudden onset of central chest pain approximately 2 PM while at rest. Patient described the chest pain as sharp nonradiating, being by shortness of breath and diaphoresis. Chest x-ray was taken and revealed very large right-sided pneumothorax with complete collapse of the right lung and minimal mediastinal shift to the left suggesting some degree of tension. Chest tube was placed in the emergency department. Repeat chest x-ray revealed interval reinflation of the right lung post chest tube placement. Repeat chest x-ray pending for today Chest tube to 20 cm suction Consult placed to pulmonology for management of chest tube DVT prophylaxis with SCDs (2) Bipolar disorder, unspecified ICD Codes: F31.9 - Bipolar disorder, unspecified Plan: Continue patient's home Zoloft 200 mg by mouth daily, Seroquel 100 mg by mouth twice a day and Lamictal 200 mg by mouth daily (3) CAD (coronary artery disease) ICD Codes: I25.10 - CAD (coronary artery disease) Status: Acute Plan: Continue patient's home atenolol 25 mg by mouth daily, atorvastatin 80 mg by mouth daily at bedtime, TriCor 145 mg by mouth daily Assessment and Plan Patient examined. Assessment and plan formulated with Nanci Alvarado PA-C. I agree with the above. Air leak noted. Pt's knows Dr. Neal and requests that he be consulted to manage the chest tube. Case d/w Dr. Neal. He will consult. Physician Certification 2 Midnight Certification Type: Admission for Inpatient Services Order for Inpatient Services The services are ordered in accordance with Medicare regulations or non- Medicare payer requirements, as applicable. In the case of services not specified as inpatient-only, they are appropriately provided as inpatient services in accordance with the 2-midnight benchmark. Estimated LOS (days): 4 days is the estimated time the patient will need to remain in the hospital, assuming treatment plan goals are met and no additional complications. Post-Hospital Plan: Home Problem Qualifiers (1) Pneumothorax: Qualified Codes: J93.9 - Pneumothorax, unspecified Nanci Alvarado Aug 22, 2017 09:09 Dany Vaughan DO Aug 22, 2017 11:44
[2017-08-22] MEDS: SERTRALINE HCL 100 MG TAB PO SCH (09:10)
[2017-08-22] MEDS: ATENOLOL 25 MG TAB PO SCH ×2 (09:11→20:45)
[2017-08-22] MEDS: FENOFIBRATE 145 MG TAB PO SCH (09:11)
[2017-08-22] MEDS: lamoTRIgine 100 MG TAB PO SCH (09:11)
[2017-08-22] MEDS: QUEtiapine FUMARATE 100 MG TAB PO SCH ×2 (09:11→20:45)
--- NOTE | 2017-08-22 12:26 | RADRPT ---
EXAM DATE/TIME: 08/22/2017 08:22 [facility] COMPARISON: CHEST SINGLE AP, August 21, 2017, 15:53. INDICATIONS : Shortness of breath, cough, and chest pain. Right side chest tube. MEDICAL HISTORY : Myocardial infarction. Right side chest tube. SURGICAL HISTORY : None. ENCOUNTER: Initial ACUITY: 2 days PAIN SCORE: 5/10 LOCATION: Bilateral chest FINDINGS: A single view of the chest demonstrates the lungs to be symmetrically aerated without evidence of mas s, infiltrate or effusion. Linear atelectasis right base. The cardiomediastinal contours are unremar kable. Osseous structures are intact. Mild subcutaneous emphysema about the lateral chest wall. Righ t chest tube tip remains projected at the right apex. CONCLUSION: Chest tube stable in position. No pneumothorax seen. Bernardo Faye MD on August 22, 2017 at 12:24 Board Certified Radiologist. This report was verified electronically.
[2017-08-22] MEDS: RESP: ALBUTEROL 2.5 MG/IPRATROPIUM 0.5 MG NEB (SCH) NEB ×2 (15:32→19:59)
[2017-08-22] MEDS: LORazepam 1 MG TAB PO PRN (17:45)
[2017-08-22] MEDS: BUDESONIDE-FORMOTEROL 160/4.5 MCG INHALER INH SCH (20:45)
[2017-08-22] MEDS: ATORVASTATIN 80 MG TAB PO SCH (20:45)
--- NOTE | 2017-08-22 23:35 | EKG ---
Date Performed: 08/21/2017 Time Performed: 19:57:56 PTAGE: 57 years EKG: Sinus rhythm WITH FIRST DEGREE AV BLOCK MODERATE INTRAVENTRICULAR CONDUCTION DELAY NONSPECIFIC T-WAVE ABNORMALITY ABNORMAL ECG PREVIOUS TRACING : 08/21/2017 14.23 Since the previous tracing, no significant change noted DOCTOR: Kirt Hussein Interpretating Date/Time 08/22/2017 23:32:32
--- NOTE | 2017-08-22 23:46 | EKG ---
Date Performed: 08/21/2017 Time Performed: 14:23:21 PTAGE: 57 years EKG: Sinus rhythm MODERATE INTRAVENTRICULAR CONDUCTION DELAY MINIMAL ST DEPRESSION BORDERLINE ECG INTERPRETATION BASED ON A DEFAULT AGE OF 40 YEARS NO PREVIOUS TRACING DOCTOR: Kirt Hussein Interpretating Date/Time 08/22/2017 23:42:38
[2017-08-23] VITALS (31 sets, daily range): BP systolic 148–176; BP diastolic 70–91; PULSE 55–88; RESP 18; TEMP 97.8–98.4; O2SAT 93–98
[2017-08-23] MEDS: MORPHINE SULFATE 4 MG/ML INJ IV PRN ×5 (01:54→23:59)
--- NOTE | 2017-08-23 06:24 | RADRPT ---
EXAM DATE/TIME: 08/23/2017 05:47 [facility] COMPARISON: CHEST SINGLE AP, August 22, 2017, 8:22. INDICATIONS : Shortness of breath, possible pulmonary disease. MEDICAL HISTORY : Myocardial infarction. SURGICAL HISTORY : None. ENCOUNTER: Subsequent ACUITY: 3 days PAIN SCORE: 5/10 LOCATION: Bilateral chest FINDINGS: Right thoracostomy tube again seen. No pneumothorax. Parenchymal consolidation within the right lung base is stable. Left lung is clear. No effusions. Heart is normal in size. CONCLUSION: No pneumothorax. Stable right basilar atelectasis. Bernardo Rizo Jr., MD on August 23, 2017 at 6:22 Board Certified Radiologist. This report was verified electronically.
[2017-08-23] MEDS: FENOFIBRATE 145 MG TAB PO SCH (08:24)
[2017-08-23] MEDS: QUEtiapine FUMARATE 100 MG TAB PO SCH ×2 (08:24→20:56)
[2017-08-23] MEDS: lamoTRIgine 100 MG TAB PO SCH (08:24)
[2017-08-23] MEDS: SERTRALINE HCL 100 MG TAB PO SCH (08:24)
[2017-08-23] MEDS: ATENOLOL 25 MG TAB PO SCH ×2 (08:25→20:56)
[2017-08-23] MEDS: BUDESONIDE-FORMOTEROL 160/4.5 MCG INHALER INH SCH ×2 (08:26→20:56)
[2017-08-23] MEDS: SODIUM CHLORIDE 0.9% FLUSH 10 ML FLUSH IV FLUSH SCH ×2 (08:26→20:56)
[2017-08-23] MEDS: RESP: ALBUTEROL 2.5 MG/IPRATROPIUM 0.5 MG NEB (SCH) NEB ×4 (09:08→20:29)
--- NOTE | 2017-08-23 09:29 | HHI.PR ---
Subjective Remarks Patient reports feeling better today than yesterday denies SOB/cough c/o some soreness on the right side- controlled with the pain medication Objective Vitals Vital Signs Date Time Temp Pulse Resp B/P (MAP) Pulse Ox O2 Delivery O2 Flow Rate FiO2 08/23/17 09:20 78 08/23/17 09:10 95 21 08/23/17 08:55 88 08/23/17 08:54 97.8 78 18 165/89 (114) 98 08/23/17 07:46 71 08/23/17 07:46 Room Air 08/23/17 06:17 55 08/23/17 05:00 62 08/23/17 04:27 98.0 60 149/91 (110) 93 08/23/17 04:00 56 08/23/17 03:23 Room Air 3.00 21 08/23/17 03:00 57 08/23/17 02:00 55 08/23/17 01:00 62 08/23/17 00:00 56 08/22/17 23:50 97.7 65 166/81 (109) 94 08/22/17 23:50 Room Air 3.00 21 08/22/17 23:00 59 08/22/17 22:00 63 08/22/17 20:00 96 21 08/22/17 20:00 98.4 66 171/82 (111) 96 08/22/17 20:00 62 08/22/17 20:00 Room Air 3.00 21 08/22/17 16:02 60 08/22/17 16:00 98.4 62 20 149/86 (107) 94 08/22/17 15:32 97 21 08/22/17 12:00 98.5 53 18 161/90 (113) 96 08/22/17 11:59 75 08/22/17 09:55 98 21 Result Diagram: 08/22/17 0649 08/22/17 0646 Other Results Laboratory Tests Test 08/21/17 14:30 08/22/17 06:46 08/22/17 06:49 White Blood Count 6.0 TH/MM3 7.8 TH/MM3 Red Blood Count 4.41 MIL/MM3 4.21 MIL/MM3 Hemoglobin 13.5 GM/DL 12.6 GM/DL Hematocrit 38.0 % 36.3 % Mean Corpuscular Volume 86.3 FL 86.2 FL Mean Corpuscular Hemoglobin 30.6 PG 29.9 PG Mean Corpuscular Hemoglobin Concent 35.5 % 34.7 % Red Cell Distribution Width 14.1 % 13.8 % Platelet Count 248 TH/MM3 240 TH/MM3 Mean Platelet Volume 8.5 FL 8.4 FL Neutrophils (%) (Auto) 64.2 % 82.9 % Lymphocytes (%) (Auto) 24.3 % 11.2 % Monocytes (%) (Auto) 8.4 % 5.7 % Eosinophils (%) (Auto) 2.3 % 0.1 % Basophils (%) (Auto) 0.8 % 0.1 % Neutrophils # (Auto) 3.9 TH/MM3 6.4 TH/MM3 Lymphocytes # (Auto) 1.5 TH/MM3 0.9 TH/MM3 Monocytes # (Auto) 0.5 TH/MM3 0.4 TH/MM3 Eosinophils # (Auto) 0.1 TH/MM3 0.0 TH/MM3 Basophils # (Auto) 0.0 TH/MM3 0.0 TH/MM3 CBC Comment DIFF FINAL DIFF FINAL Differential Comment Prothrombin Time 10.5 SEC Prothromb Time International Ratio 1.0 RATIO Activated Partial Thromboplast Time 23.1 SEC Blood Urea Nitrogen 11 MG/DL 15 MG/DL Creatinine 1.16 MG/DL 1.11 MG/DL Random Glucose 119 MG/DL 239 MG/DL Total Protein 7.3 GM/DL Albumin 4.2 GM/DL Calcium Level 9.0 MG/DL 8.6 MG/DL Magnesium Level 2.0 MG/DL Alkaline Phosphatase 83 U/L Aspartate Amino Transf (AST/SGOT) 22 U/L Alanine Aminotransferase (ALT/SGPT) 43 U/L Total Bilirubin 0.5 MG/DL Sodium Level 141 MEQ/L 137 MEQ/L Potassium Level 4.0 MEQ/L 4.1 MEQ/L Chloride Level 109 MEQ/L 103 MEQ/L Carbon Dioxide Level 25.2 MEQ/L 24.9 MEQ/L Anion Gap 7 MEQ/L 9 MEQ/L Estimat Glomerular Filtration Rate 65 ML/MIN 68 ML/MIN Total Creatine Kinase 140 U/L Creatine Kinase MB 2.7 NG/ML Troponin I LESS THAN 0.02 NG/ML B-Type Natriuretic Peptide 29 PG/ML Imaging Last Impressions Chest X-Ray 08/21/17 3486 Signed Impressions: Service Date/Time: Monday, August 21, 2017 14:43 - CONCLUSION: Very large right-sided pneumothorax with complete collapse of the right lung and minimal mediastinal shift to the left suggesting some degree of tension. Dr. Cox was called with the findings 3: 05 P.M. on 08/21/17. Krishan Roberts MD Objective Remarks GENERAL: This is a well-nourished, well-developed patient, in no apparent distress. CARDIOVASCULAR: Regular rate and rhythm RESPIRATORY: Clear to auscultation. Breath sounds equal bilaterally. Chest tube in place with small air leak present GASTROINTESTINAL: Abdomen soft, non-tender, nondistended. No hepato-splenomegaly , or palpable masses. No guarding. MUSCULOSKELETAL: Extremities without clubbing, cyanosis, or edema. No joint tenderness, effusion, or edema noted. No calf tenderness. Negative Homans sign bilaterally. NEUROLOGICAL: Awake and alert. Motor and sensory grossly within normal limits. Five out of 5 muscle strength in all muscle groups. Normal speech. A/P Problem List: (1) Pneumothorax ICD Codes: J93.9 - Pneumothorax, unspecified Status: Acute Plan: sudden onset of central chest pain approximately 2 PM while at rest. Patient described the chest pain as sharp nonradiating, being by shortness of breath and diaphoresis. Chest x-ray was taken and revealed very large right-sided pneumothorax with complete collapse of the right lung and minimal mediastinal shift to the left suggesting some degree of tension. Chest tube was placed in the emergency department. Repeat chest x-ray revealed interval reinflation of the right lung post chest tube placement. Chest tube to 20 cm suction Consult placed to pulmonology for management of chest tube CXR (08/23) No pneumothorax. Stable right basilar atelectasis repeat CXR in AM DVT prophylaxis with SCDs (2) Bipolar disorder, unspecified ICD Codes: F31.9 - Bipolar disorder, unspecified Plan: Continue patient's home Zoloft 200 mg by mouth daily, Seroquel 100 mg by mouth twice a day and Lamictal 200 mg by mouth daily (3) CAD (coronary artery disease) ICD Codes: I25.10 - CAD (coronary artery disease) Status: Acute Plan: Continue patient's home atenolol 25 mg by mouth daily, atorvastatin 80 mg by mouth daily at bedtime, TriCor 145 mg by mouth daily Assessment and Plan Patient examined. Assessment and plan formulated with Nanci Alvarado PA-C. I agree with the above. continued air leak noted on pleurivac. Continue suction. Appreciate input from Dr. Neal. Repeat CXR in AM Problem Qualifiers (1) Pneumothorax: Qualified Codes: J93.9 - Pneumothorax, unspecified Nanci Alvarado Aug 23, 2017 09:29 Dany Vaughan DO Aug 23, 2017 10:58
--- NOTE | 2017-08-23 10:31 | MB ---
cc: El Neal MD DATE OF CONSULT: 08/22/2017 REASON FOR CONSULTATION: Pneumothorax. HISTORY OF PRESENT ILLNESS: This is a 57-year-old white male who has a prior history of COPD and a long history of smoking. Has had a past history of coronary artery disease and AK in 1998 with stenting. The patient has also a history for hypertension, hyperlipidemia, bipolar disorder and migraines. 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 The pain was quite sharp, mostly in the mid chest area and towards the right side. He could not catch his breath and, thus, was brought to the emergency room. Upon arrival, a chest x-ray was done, which showed evidence of a large right pneumothorax with some mediastinal shift. The patient had a chest tube placed on the right side, with significant resolution of the pneumothorax. He is now breathing better and he is on oxygen by nasal canula, 3 liters. His chest pain has subsided. He has no hemoptysis, fevers or chills. Denies any nausea or vomiting or urinary symptoms. PAST MEDICAL HISTORY: Has included history for coronary artery disease with stent placement in 1999, history of restenosis, treated medically. Past history of detached retina with repair, history of hyperlipidemia and history of migraines and osteoarthritis. PAST SURGICAL HISTORY: Includes right retinal detachment repair and ankle surgery with repair, and cardiac catheterizations. ALLERGIES: PENICILLIN. MEDICATION LIST: Ativan 1 milligram three times a day as needed, Lipitor 80 milligrams at bedtime, Tenormin 25 milligrams twice a day, Tricor 145 milligrams daily, nabumetone 750 milligrams twice a day, Zoloft 100 milligrams a day, Lamictal 200 milligrams daily, Seroquel 100 milligrams twice a day. HABITS: The patient smoked 1/2-1 pack per day for over 30 years and for the past 5 years he has been smoking the E-cigarette vaping. Alcohol use is minimal. FAMILY HISTORY: Significant for coronary artery disease in his mother, as well as COPD. One sister with AK. REVIEW OF SYSTEMS: The patient has gained weight. There is dizziness, postnasal drip, cough and wheezing, epigastric distress and reflux. Denies nausea and vomiting. Has no leg or calf muscle pains. She has some anxiety with depression and occasional headaches. PHYSICAL EXAMINATION: GENERAL: This averagely built middle-aged white male is alert and in no acute distress, mild pallor. No icterus, cyanosis or edema. VITAL SIGNS: His blood pressure is 138/80, pulse 75, respirations 20, temperature 97.5. HEENT: Head is normocephalic, pupils reactive and equal. Throat is clear. Nasal mucosa injected. Ears, no inflammation. NECK: Supple, no bruits or thyroid enlargement, lymphadenopathy. CHEST: Increased AP Diameter with percussion Note resonant throughout. Breath sounds slightly diminished at the right apex. A few wheezes anteriorly. CARDIOVASCULAR: Heart sounds are regular, S1 and S2, with no murmur, no S3. ABDOMEN: Soft, benign. No mass, no organomegaly, tenderness. Bowel sounds are active. EXTREMITIES: No lesions, edema. Reflexes 1+, with no gross motor deficits. SKIN: No lesions observed. RECTAL: Deferred. IMPRESSION: 1. Spontaneous pneumothorax, right chest. 2. Chronic obstructive pulmonary disease with emphysema. 3. Bipolar disorder. 4. History of coronary artery disease. 5. Hypertension. PLAN: The patient's chest is in good position. The pneumothorax has resolved. He will be sent for a repeat chest x-ray in the a.m., and if significant resolution of the pneumothorax, we will plan for the chest tube and repeat the chest x-ray and hopefully discontinue the chest tube in the next 24-48 hours. Nebulized DuoNebs solution added four times a day. Incentive spirometry to be at the bedside every 2 hours. CBC, basic metabolic profile to be done as well. PFT when he is clinically stable. Symbicort 160/4.5 added, 2 puffs twice a day. Thank you, Dr. Vaughan, for this consultation. MD PAULINA Escoto/COLEMAN , 06:10 PM , 07:13 PM JESI
[2017-08-23] MEDS: LORazepam 1 MG TAB PO PRN (18:42)
--- NOTE | 2017-08-23 19:22 | HHI.PR ---
Subjective Remarks He is stable and Not SOB. CXR shows no Pneumothorax. Chest tube is still leaking Objective Vital Signs Date Time Temp Pulse Resp B/P (MAP) Pulse Ox O2 Delivery O2 Flow Rate FiO2 08/23/17 18:18 84 08/23/17 17:39 84 08/23/17 16:13 84 08/23/17 15:21 98.0 84 18 148/70 (96) 98 08/23/17 15:15 Room Air 08/23/17 15:15 84 08/23/17 14:03 78 08/23/17 13:40 80 08/23/17 12:04 78 08/23/17 11:48 98.0 62 18 158/74 (102) 08/23/17 11:45 62 08/23/17 11:45 Room Air 08/23/17 10:32 62 08/23/17 09:20 78 08/23/17 09:10 95 21 08/23/17 08:55 88 08/23/17 08:54 97.8 78 18 165/89 (114) 98 08/23/17 07:46 71 08/23/17 07:46 Room Air 08/23/17 06:17 55 08/23/17 05:00 62 08/23/17 04:27 98.0 60 149/91 (110) 93 08/23/17 04:00 56 08/23/17 03:23 Room Air 3.00 21 08/23/17 03:00 57 08/23/17 02:00 55 08/23/17 01:00 62 08/23/17 00:00 56 08/22/17 23:50 97.7 65 166/81 (109) 94 08/22/17 23:50 Room Air 3.00 21 08/22/17 23:00 59 08/22/17 22:00 63 08/22/17 20:00 96 21 08/22/17 20:00 98.4 66 171/82 (111) 96 08/22/17 20:00 62 08/22/17 20:00 Room Air 3.00 21 I/O 08/22/17 08/22/17 08/22/17 08/23/17 08/23/17 08/23/17 07:00 15:00 23:00 07:00 15:00 23:00 Intake Total 600 ml 240 ml 1000 ml Output Total 1280 ml 1920 ml 950 ml 1700 ml Balance -680 ml -1920 ml -710 ml -700 ml Intake Oral 600 ml 240 ml 1000 ml IV Total 0 ml Output Urine Total 1280 ml 1900 ml 950 ml 1700 ml Chest Tube Drainage Total 0 ml 20 ml # Bowel Movements 0 Result Diagram: 08/22/17 0649 08/22/17 0646 Objective Remarks GENERAL: This averagely built middle-aged white male is alert and in no acute distress, mild pallor. No icterus, cyanosis or edema. VITAL SIGNS: His blood pressure is 138/80, pulse 75, respirations 20, temperature 97.5. HEENT: Head is normocephalic, pupils reactive and equal. Throat is clear. Nasal mucosa injected. Ears, no inflammation. NECK: Supple, no bruits or thyroid enlargement, lymphadenopathy. CHEST: Increased AP Diameter, with percussion. Note resonant throughout. Breath sounds slightly diminished at the right apex. A few wheezes anteriorly. CARDIOVASCULAR: Heart sounds are regular, S1 and S2, with no murmur, no S3. ABDOMEN: Soft, benign. No mass, no organomegaly, tenderness. Bowel sounds are active. EXTREMITIES: No lesions, edema. Reflexes 1+, with no gross motor deficits. SKIN: No lesions observed. RECTAL: Deferred. Assessment and Plan Assessment and Plan IMPRESSION: 1. Spontaneous pneumothorax, right chest. 2. Chronic obstructive pulmonary disease with emphysema. 3. Bipolar disorder. 4. History of coronary artery disease. 5. Hypertension. Plan : 1. Chest tube to Drain. 2. Nebs qid , duoneb. 3. CXR in am. 4. Will Add Levaquin 500 mg daily 5. Clamp Chest tube when air leak stops. El Neal MD Aug 23, 2017 19:22
[2017-08-23] MEDS: ATORVASTATIN 80 MG TAB PO SCH (20:56)
[2017-08-24] VITALS (27 sets, daily range): BP systolic 135–163; BP diastolic 74–94; PULSE 60–77; RESP 12–18; TEMP 97.6–98.4; O2SAT 94–98
[2017-08-24] MEDS: MORPHINE SULFATE 4 MG/ML INJ IV PRN ×3 (05:59→21:36)
[2017-08-24] MEDS: RESP: ALBUTEROL 2.5 MG/IPRATROPIUM 0.5 MG NEB (SCH) NEB ×4 (07:44→20:31)
[2017-08-24] MEDS: BUDESONIDE-FORMOTEROL 160/4.5 MCG INHALER INH SCH ×2 (09:01→21:03)
[2017-08-24] MEDS: ATENOLOL 25 MG TAB PO SCH ×2 (09:02→21:06)
[2017-08-24] MEDS: QUEtiapine FUMARATE 100 MG TAB PO SCH ×2 (09:02→21:07)
[2017-08-24] MEDS: MAGNESIUM HYDROXIDE SUSP 30 ML CUP PO PRN (09:02)
[2017-08-24] MEDS: SODIUM CHLORIDE 0.9% FLUSH 10 ML FLUSH IV FLUSH SCH ×2 (09:02→21:03)
[2017-08-24] MEDS: lamoTRIgine 100 MG TAB PO SCH (09:02)
--- NOTE | 2017-08-24 09:02 | RADRPT ---
EXAM DATE/TIME: 08/24/2017 08:34 [facility] COMPARISON: CHEST SINGLE AP, August 23, 2017, 5:47. INDICATIONS : Right sided pneumothorax. MEDICAL HISTORY : Myocardial infarction. SURGICAL HISTORY : Right side chest tube. Stents. ENCOUNTER: Subsequent ACUITY: 3 days PAIN SCORE: 5/10 LOCATION: Right chest FINDINGS: There is a small right apical pneumothorax measuring 16 mm. Right-sided chest tube is noted and uncha nged. The heart is enlarged. Scattered bibasilar streakiness is noted. CONCLUSION: 1. Small right apical pneumothorax measuring 16 mm. 2. Bibasilar atelectasis. 3. Cardiomegaly. Krishan Roberts MD on August 24, 2017 at 8:52 Board Certified Radiologist. This report was verified electronically.
[2017-08-24] MEDS: LEVOFLOXACIN 500 MG TAB PO SCH (09:03)
[2017-08-24] MEDS: SERTRALINE HCL 100 MG TAB PO SCH (09:03)
[2017-08-24] MEDS: FENOFIBRATE 145 MG TAB PO SCH (09:03)
[2017-08-24] MEDS: ACETAMINOPHEN/HYDROcodone 325 MG/10 MG TAB PO PRN ×3 (09:41→22:39)
--- NOTE | 2017-08-24 11:06 | HHI.PR ---
Subjective Remarks Patient c/o right sided back pain Chest tube still with air leak Objective Vitals Vital Signs Date Time Temp Pulse Resp B/P (MAP) Pulse Ox O2 Delivery O2 Flow Rate FiO2 08/24/17 07:46 97 08/24/17 07:00 98.0 67 12 150/81 (104) 97 08/24/17 06:40 66 08/24/17 05:35 68 08/24/17 04:39 66 08/24/17 03:15 Room Air 3.00 21 08/24/17 03:14 60 08/24/17 03:00 97.7 66 163/94 (117) 94 08/24/17 02:00 67 08/24/17 01:00 65 08/24/17 00:00 63 08/23/17 23:03 Room Air 3.00 21 08/23/17 23:00 97.8 62 170/85 (113) 94 08/23/17 23:00 60 08/23/17 22:43 Room Air 21 08/23/17 22:43 98.4 70 176/90 (118) 94 08/23/17 22:00 64 08/23/17 21:00 71 08/23/17 20:30 98 08/23/17 20:00 73 08/23/17 19:00 60 08/23/17 18:18 84 08/23/17 17:39 84 08/23/17 16:13 84 08/23/17 15:21 98.0 84 18 148/70 (96) 98 08/23/17 15:15 Room Air 08/23/17 15:15 84 08/23/17 14:03 78 08/23/17 13:40 80 08/23/17 12:04 78 08/23/17 11:48 98.0 62 18 158/74 (102) 08/23/17 11:45 62 08/23/17 11:45 Room Air 08/24/17 08/24/17 08/25/17 15:00 23:00 07:00 Output Total 20 ml Balance -20 ml Chest Tube Drainage Total 20 ml Result Diagram: 08/22/17 0649 08/22/17 0646 Other Results Laboratory Tests Test 08/21/17 14:30 08/22/17 06:46 08/22/17 06:49 White Blood Count 6.0 TH/MM3 7.8 TH/MM3 Red Blood Count 4.41 MIL/MM3 4.21 MIL/MM3 Hemoglobin 13.5 GM/DL 12.6 GM/DL Hematocrit 38.0 % 36.3 % Mean Corpuscular Volume 86.3 FL 86.2 FL Mean Corpuscular Hemoglobin 30.6 PG 29.9 PG Mean Corpuscular Hemoglobin Concent 35.5 % 34.7 % Red Cell Distribution Width 14.1 % 13.8 % Platelet Count 248 TH/MM3 240 TH/MM3 Mean Platelet Volume 8.5 FL 8.4 FL Neutrophils (%) (Auto) 64.2 % 82.9 % Lymphocytes (%) (Auto) 24.3 % 11.2 % Monocytes (%) (Auto) 8.4 % 5.7 % Eosinophils (%) (Auto) 2.3 % 0.1 % Basophils (%) (Auto) 0.8 % 0.1 % Neutrophils # (Auto) 3.9 TH/MM3 6.4 TH/MM3 Lymphocytes # (Auto) 1.5 TH/MM3 0.9 TH/MM3 Monocytes # (Auto) 0.5 TH/MM3 0.4 TH/MM3 Eosinophils # (Auto) 0.1 TH/MM3 0.0 TH/MM3 Basophils # (Auto) 0.0 TH/MM3 0.0 TH/MM3 CBC Comment DIFF FINAL DIFF FINAL Differential Comment Prothrombin Time 10.5 SEC Prothromb Time International Ratio 1.0 RATIO Activated Partial Thromboplast Time 23.1 SEC Blood Urea Nitrogen 11 MG/DL 15 MG/DL Creatinine 1.16 MG/DL 1.11 MG/DL Random Glucose 119 MG/DL 239 MG/DL Total Protein 7.3 GM/DL Albumin 4.2 GM/DL Calcium Level 9.0 MG/DL 8.6 MG/DL Magnesium Level 2.0 MG/DL Alkaline Phosphatase 83 U/L Aspartate Amino Transf (AST/SGOT) 22 U/L Alanine Aminotransferase (ALT/SGPT) 43 U/L Total Bilirubin 0.5 MG/DL Sodium Level 141 MEQ/L 137 MEQ/L Potassium Level 4.0 MEQ/L 4.1 MEQ/L Chloride Level 109 MEQ/L 103 MEQ/L Carbon Dioxide Level 25.2 MEQ/L 24.9 MEQ/L Anion Gap 7 MEQ/L 9 MEQ/L Estimat Glomerular Filtration Rate 65 ML/MIN 68 ML/MIN Total Creatine Kinase 140 U/L Creatine Kinase MB 2.7 NG/ML Troponin I LESS THAN 0.02 NG/ML B-Type Natriuretic Peptide 29 PG/ML Imaging Last Impressions Chest X-Ray 08/21/17 1436 Signed Impressions: Service Date/Time: Monday, August 21, 2017 14:43 - CONCLUSION: Very large right-sided pneumothorax with complete collapse of the right lung and minimal mediastinal shift to the left suggesting some degree of tension. Dr. Cox was called with the findings 3: 05 P.M. on 08/21/17. Krishan Roberts MD Objective Remarks GENERAL: This is a well-nourished, well-developed patient, in no apparent distress. CARDIOVASCULAR: Regular rate and rhythm RESPIRATORY: Clear to auscultation. Breath sounds equal bilaterally. Chest tube in place with air leak present GASTROINTESTINAL: Abdomen soft, non-tender, nondistended. No hepato-splenomegaly , or palpable masses. No guarding. MUSCULOSKELETAL: Extremities without clubbing, cyanosis, or edema. No joint tenderness, effusion, or edema noted. No calf tenderness. Negative Homans sign bilaterally. NEUROLOGICAL: Awake and alert. Motor and sensory grossly within normal limits. Five out of 5 muscle strength in all muscle groups. Normal speech. A/P Problem List: (1) Pneumothorax ICD Codes: J93.9 - Pneumothorax, unspecified Status: Acute Plan: sudden onset of central chest pain approximately 2 PM while at rest. Patient described the chest pain as sharp nonradiating, being by shortness of breath and diaphoresis. Chest x-ray was taken and revealed very large right-sided pneumothorax with complete collapse of the right lung and minimal mediastinal shift to the left suggesting some degree of tension. Chest tube was placed in the emergency department. Repeat chest x-ray revealed interval reinflation of the right lung post chest tube placement. Chest tube to 20 cm suction Consult placed to pulmonology for management of chest tube CXR (08/23) No pneumothorax. Stable right basilar atelectasis repeat CXR (08/24) Small right apical pneumothorax measuring 16 mm. Bibasilar atelectasis. Cardiomegaly. Chest tube with persistent air leak Dr. Vaughan discussed case with Dr. Neal -> consult placed to Cardiothoracic surgery to assist DVT prophylaxis with SCDs (2) Bipolar disorder, unspecified ICD Codes: F31.9 - Bipolar disorder, unspecified Plan: Continue patient's home Zoloft 200 mg by mouth daily, Seroquel 100 mg by mouth twice a day and Lamictal 200 mg by mouth daily (3) CAD (coronary artery disease) ICD Codes: I25.10 - CAD (coronary artery disease) Status: Acute Plan: Continue patient's home atenolol 25 mg by mouth daily, atorvastatin 80 mg by mouth daily at bedtime, TriCor 145 mg by mouth daily (4) Back pain ICD Codes: M54.9 - Dorsalgia, unspecified Plan: Patient has back pain describes pain as a soreness worse with certain positions CT on right side also resume patient's home Nabumetone 750 mg PO BID add K Therma pad as needed Assessment and Plan Patient examined. Assessment and plan formulated with Nanci Alvarado PA-C. I agree with the above. Pt with persistent air leak. Case d/w Dr. Neal (08/24/17) Await CTS consultation. Problem Qualifiers (1) Pneumothorax: Qualified Codes: J93.9 - Pneumothorax, unspecified Nanci Alvarado Aug 24, 2017 11:06 Dany Vaughan DO Aug 24, 2017 13:16
[2017-08-24] MEDS ORDERED: PILL SPLITTER OTHER PRN (11:15)
[2017-08-24] MEDS: LISINOPRIL 10 MG TAB PO SCH ×2 (12:14→21:06)
[2017-08-24] MEDS: NABUMETONE 500 MG TAB PO SCH ×2 (12:15→21:05)
--- NOTE | 2017-08-24 13:13 | HHI.PR ---
Subjective Remarks He is stable and chest tube is still leaking. CXR shows no Pneumothorax. Off O2. Objective Vital Signs Date Time Temp Pulse Resp B/P (MAP) Pulse Ox O2 Delivery O2 Flow Rate FiO2 08/24/17 11:40 98.4 66 12 162/90 (114) 94 08/24/17 08:00 97 Room Air 08/24/17 07:46 97 08/24/17 07:00 98.0 67 12 150/81 (104) 97 08/24/17 07:00 66 08/24/17 07:00 97 Room Air 08/24/17 06:40 66 08/24/17 05:35 68 08/24/17 04:39 66 08/24/17 03:15 Room Air 3.00 21 08/24/17 03:14 60 08/24/17 03:00 97.7 66 163/94 (117) 94 08/24/17 02:00 67 08/24/17 01:00 65 08/24/17 00:00 63 08/23/17 23:03 Room Air 3.00 21 08/23/17 23:00 97.8 62 170/85 (113) 94 08/23/17 23:00 60 08/23/17 22:43 Room Air 21 08/23/17 22:43 98.4 70 176/90 (118) 94 08/23/17 22:00 64 08/23/17 21:00 71 08/23/17 20:30 98 08/23/17 20:00 73 08/23/17 19:00 60 08/23/17 18:18 84 08/23/17 17:39 84 08/23/17 16:13 84 08/23/17 15:21 98.0 84 18 148/70 (96) 98 08/23/17 15:15 Room Air 08/23/17 15:15 84 08/23/17 14:03 78 08/23/17 13:40 80 I/O 08/23/17 08/23/17 08/23/17 08/24/17 08/24/17 08/24/17 07:00 15:00 23:00 07:00 15:00 23:00 Intake Total 240 ml 1000 ml 240 ml Output Total 950 ml 1700 ml 1070 ml 20 ml Balance -710 ml -700 ml -830 ml -20 ml Intake Oral 240 ml 1000 ml 240 ml IV Total 0 ml Output Urine Total 950 ml 1700 ml 1050 ml Chest Tube Drainage Total 20 ml 20 ml Result Diagram: 08/22/17 0649 08/22/17 0646 Objective Remarks GENERAL: This averagely built middle-aged white male is alert and in no acute distress, mild pallor. No icterus, cyanosis or edema. HEENT: Head is normocephalic, pupils reactive and equal. Throat is clear. Nasal mucosa injected. Ears, no inflammation. NECK: Supple, no bruits or thyroid enlargement, lymphadenopathy. CHEST: Increased AP Diameter, with percussion Note resonant throughout. Breath sounds slightly diminished at the right apex. A few wheezes anteriorly. CARDIOVASCULAR: Heart sounds are regular, S1 and S2, with no murmur, no S3. ABDOMEN: Soft, benign. No mass, no organomegaly, tenderness. Bowel sounds are active. EXTREMITIES: No lesions, or edema. Reflexes 1+, with no gross motor deficits. SKIN: No lesions observed. Assessment and Plan Assessment and Plan IMPRESSION: 1. Spontaneous pneumothorax, right chest. 2. Chronic obstructive pulmonary disease with emphysema. 3. Bipolar disorder. 4. History of coronary artery disease. 5. Hypertension. Plan : 1. Chest tube to Drain. 2. Nebs qid , duoneb. 3. CXR ,BMP in am. 4. Levaquin 500 mg daily 5. Get CT surgery consult for persistent air leak. El Neal MD Aug 24, 2017 13:13
--- NOTE | 2017-08-24 16:46 | MB ---
cc: Wood Leija MD DATE: 08/24/2017 HISTORY OF PRESENT ILLNESS: A 57-year-old patient of Dr. Jarret Serra and Dr. Harrington presented on the after developing some sharp chest pain in the afternoon. He said he bent over to pick something up and then he felt a pop on Sunday. He was lifting some heavy objects on Sunday prior. He has a history of coronary artery disease and thought that it might be related to his cardiac history and he took an aspirin and some sublingual nitro with no improvement, so he proceeded to the emergency room. Upon ER admission, it revealed a large right-sided pneumothorax with complete collapse of the right lung and minimal mediastinal shift to the left, suggesting of some degree of tension. Chest tube was placed and repeat showed interval reinflation of the right lung post-chest tube. We were consulted due to persistent air leak. His chest x-ray this morning shows a persistent small right apical pneumo, bibasilar atelectasis, cardiomegaly. CT chest is now pending. PAST MEDICAL HISTORY: Significant for coronary artery disease, detached retina, hypertension, hyperlipidemia, bipolar disorder, migraine headaches, osteoarthritis. PAST SURGICAL HISTORY: Includes cardiac catheterization in 1999 with a stent placement. Repeat cardiac catheterization in 2011 with in-stent restenosis. He is treated medically. He is followed by Dr. Gant. Repair of right retinal detachment 5 years ago. Right ankle surgery and repair. ALLERGIES: PATIENT IS ALLERGIC TO PENICILLIN. HOME MEDICATIONS: Include Ativan, nitro p.r.n., Lipitor, atenolol, Tricor, nabumetone, Zoloft, Lamictal, Seroquel. FAMILY HISTORY: Mother from coronary artery disease, also had emphysema and tobacco. Sister had an OR at age 51. SOCIAL HISTORY: The patient is . No children. 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 He quit smoking in 2013, smoked a pack for 30 years, is now using an e-cigarette, vaping. No alcohol or illicit drugs. REVIEW OF SYSTEMS: GENERAL: No night sweats, fever, heat and cold intolerance. SKIN: No psoriasis, itching or hives. HEENT: No blurred vision or hearing loss. RESPIRATORY: No cough or shortness of breath. CARDIOVASCULAR: As above in the HPI. GASTROINTESTINAL: No diarrhea or vomiting. GENITOURINARY: No burning, frequency or urgency. CENTRAL NERVOUS SYSTEM: No history of TIA, CVA or seizure disorder. ENDOCRINOLOGY: No history of diabetes and hypothyroidism. PHYSICAL EXAMINATION: VITAL SIGNS: Blood pressure 160/90, heart rate is 70, temperature 98.4, O2 saturation 94 on room air. GENERAL: The patient is awake, alert, in no acute distress. HEENT: Head is normocephalic, atraumatic. Pupils equal and reactive. Oral mucosa pink, moist. NECK: Supple. No JVD. HEART: Sounds S1, S2. Regular rate and rhythm. No audible rubs or gallops. LUNGS: Diminished in the right lower base. Otherwise, he has got a right-sided chest tube with 1+ continuous air leak with an intermittent +2-3 on 20 cm of suction. ABDOMEN: Obese, soft or nontender. No masses or organomegaly. EXTREMITIES: No cyanosis, clubbing or edema. LABORATORY DATA: Shows hemoglobin of 12, hematocrit of 36, white cell count of 7.8, platelet count of 240. Sodium 137, potassium 4.1, BUN of 15, creatinine 1.1, glucose 239. INR 1.0. DIAGNOSTIC STUDIES: Chest x-ray as above. EKG on admission normal sinus rhythm. No acute change. IMPRESSION: A 57-year-old male with spontaneous right pneumothorax, status post chest tube placement with persistent air leak. CT chest is pending. Evaluation as per Dr. Leija and further plan. Dictated by JUD Hein MD MARK Atwood/RAMON , 04:22 PM , 04:45 PM
[2017-08-24] MEDS: ATORVASTATIN 80 MG TAB PO SCH (21:06)
[2017-08-25] VITALS (27 sets, daily range): BP systolic 96–129; BP diastolic 53–76; PULSE 57–89; RESP 12–20; TEMP 97.5–98.2; O2SAT 92–96
[2017-08-25] MEDS: ACETAMINOPHEN/HYDROcodone 325 MG/10 MG TAB PO PRN ×4 (04:15→17:03)
[2017-08-25] MEDS: RESP: ALBUTEROL 2.5 MG/IPRATROPIUM 0.5 MG NEB (SCH) NEB ×4 (08:35→19:55)
[2017-08-25] MEDS: SODIUM CHLORIDE 0.9% FLUSH 10 ML FLUSH IV FLUSH SCH ×2 (08:46→21:27)
[2017-08-25] MEDS: lamoTRIgine 100 MG TAB PO SCH (08:46)
[2017-08-25] MEDS: BUDESONIDE-FORMOTEROL 160/4.5 MCG INHALER INH SCH ×2 (08:46→21:29)
[2017-08-25] MEDS: SERTRALINE HCL 100 MG TAB PO SCH (08:47)
[2017-08-25] MEDS: NABUMETONE 500 MG TAB PO SCH ×2 (08:47→21:28)
[2017-08-25] MEDS: ATENOLOL 25 MG TAB PO SCH ×2 (08:47→21:27)
[2017-08-25] MEDS: LISINOPRIL 10 MG TAB PO SCH (08:47)
[2017-08-25] MEDS: FENOFIBRATE 145 MG TAB PO SCH (08:47)
[2017-08-25] MEDS: MAGNESIUM HYDROXIDE SUSP 30 ML CUP PO PRN (08:48)
[2017-08-25] MEDS: LEVOFLOXACIN 500 MG TAB PO SCH (08:48)
[2017-08-25] MEDS: QUEtiapine FUMARATE 100 MG TAB PO SCH ×2 (08:48→21:28)
--- NOTE | 2017-08-25 10:02 | PD.CAR.PN ---
CVT Progress Note Subjective/Hospital Course: Awaiting chest CT Objective: Vital Signs Date Time Temp Pulse Resp B/P (MAP) Pulse Ox O2 Delivery O2 Flow Rate FiO2 08/25/17 08:36 95 Nasal Cannula 2.00 08/25/17 08:00 95 Room Air 08/25/17 07:00 59 08/25/17 07:00 97.6 59 20 128/74 (92) 95 08/25/17 06:00 57 08/25/17 05:00 64 08/25/17 04:00 98.2 65 14 109/58 (75) 94 08/25/17 04:00 57 08/25/17 03:00 70 08/25/17 02:00 59 08/25/17 01:00 63 08/25/17 00:00 97.8 58 16 129/76 (93) 96 08/25/17 00:00 61 08/24/17 23:00 66 08/24/17 22:00 73 08/24/17 21:00 64 08/24/17 20:33 94 08/24/17 20:00 97 Room Air 08/24/17 20:00 97.6 68 18 147/74 (98) 98 08/24/17 20:00 71 08/24/17 18:00 69 08/24/17 17:00 66 08/24/17 16:00 61 08/24/17 15:00 97.9 63 18 135/79 (97) 94 08/24/17 15:00 68 08/24/17 15:00 18 08/24/17 14:00 65 08/24/17 13:00 71 08/24/17 12:00 77 08/24/17 11:40 98.4 66 12 162/90 (114) 94 08/24/17 11:00 68 Result Diagram: 08/22/17 0649 08/22/17 0646 Wood Leija MD Aug 25, 2017 10:02
--- NOTE | 2017-08-25 13:38 | HHI.PR ---
Subjective Remarks Patient sitting up in chair with family at bedside continued air leak in CT no BM for 4 days Objective Vitals Vital Signs Date Time Temp Pulse Resp B/P (MAP) Pulse Ox O2 Delivery O2 Flow Rate FiO2 08/25/17 12:00 63 08/25/17 11:00 65 08/25/17 11:00 97.5 65 16 96/53 (67) 96 08/25/17 10:00 63 08/25/17 09:00 63 08/25/17 08:36 95 Nasal Cannula 2.00 08/25/17 08:00 95 Room Air 08/25/17 08:00 60 08/25/17 07:00 59 08/25/17 07:00 97.6 59 20 128/74 (92) 95 08/25/17 06:00 57 08/25/17 05:00 64 08/25/17 04:00 98.2 65 14 109/58 (75) 94 08/25/17 04:00 57 08/25/17 03:00 70 08/25/17 02:00 59 08/25/17 01:00 63 08/25/17 00:00 97.8 58 16 129/76 (93) 96 08/25/17 00:00 61 08/24/17 23:00 66 08/24/17 22:00 73 08/24/17 21:00 64 08/24/17 20:33 94 08/24/17 20:00 97 Room Air 08/24/17 20:00 97.6 68 18 147/74 (98) 98 08/24/17 20:00 71 08/24/17 18:00 69 08/24/17 17:00 66 08/24/17 16:00 61 08/24/17 15:00 97.9 63 18 135/79 (97) 94 08/24/17 15:00 68 08/24/17 15:00 18 08/24/17 14:00 65 Result Diagram: 08/22/17 0649 08/22/17 0646 Imaging Last Impressions Chest X-Ray 08/21/17 1436 Signed Impressions: Service Date/Time: Monday, August 21, 2017 14:43 - CONCLUSION: Very large right-sided pneumothorax with complete collapse of the right lung and minimal mediastinal shift to the left suggesting some degree of tension. Dr. Cox was called with the findings 3: 05 P.M. on 08/21/17. Krishan Roberts MD Objective Remarks GENERAL: This is a well-nourished, well-developed patient, in no apparent distress. CARDIOVASCULAR: Regular rate and rhythm RESPIRATORY: Clear to auscultation. Breath sounds equal bilaterally. Chest tube in place with air leak present GASTROINTESTINAL: Abdomen firm, distended with hypoactive bowel sounds through out MUSCULOSKELETAL: Extremities without clubbing, cyanosis, or edema. No joint tenderness, effusion, or edema noted. No calf tenderness. Negative Homans sign bilaterally. NEUROLOGICAL: Awake and alert. Motor and sensory grossly within normal limits. Five out of 5 muscle strength in all muscle groups. Normal speech. A/P Problem List: (1) Pneumothorax ICD Codes: J93.9 - Pneumothorax, unspecified Status: Acute Plan: sudden onset of central chest pain approximately 2 PM while at rest. Patient described the chest pain as sharp nonradiating, being by shortness of breath and diaphoresis. Chest x-ray was taken and revealed very large right-sided pneumothorax with complete collapse of the right lung and minimal mediastinal shift to the left suggesting some degree of tension. Chest tube was placed in the emergency department. Repeat chest x-ray revealed interval reinflation of the right lung post chest tube placement. Chest tube to 20 cm suction Consult placed to pulmonology for management of chest tube CXR (08/23) No pneumothorax. Stable right basilar atelectasis repeat CXR (08/24) Small right apical pneumothorax measuring 16 mm. Bibasilar atelectasis. Cardiomegaly. Chest tube with persistent air leak Dr. Vaughan discussed case with Dr. Neal -> consult placed to Cardiothoracic surgery to assist awaiting CT scan to plan further interventions DVT prophylaxis with SCDs (2) Bipolar disorder, unspecified ICD Codes: F31.9 - Bipolar disorder, unspecified Plan: Continue patient's home Zoloft 200 mg by mouth daily, Seroquel 100 mg by mouth twice a day and Lamictal 200 mg by mouth daily (3) CAD (coronary artery disease) ICD Codes: I25.10 - CAD (coronary artery disease) Status: Acute Plan: Continue patient's home atenolol 25 mg by mouth daily, atorvastatin 80 mg by mouth daily at bedtime, TriCor 145 mg by mouth daily (4) Back pain ICD Codes: M54.9 - Dorsalgia, unspecified Plan: Patient has back pain describes pain as a soreness worse with certain positions CT on right side also resume patient's home Nabumetone 750 mg PO BID add K Therma pad as needed (5) Constipation ICD Codes: K59.00 - Constipation, unspecified Plan: Patient has not had a BM in 4 days abd distended with hypoactive BS continue colace BID MOM and lactulose given today Dulcolax supp ordered Encouraged patient to avoid narcotic use as much as possible, changed percocet to Q6H KUB requested Assessment and Plan Patient examined. Assessment and plan formulated with Nanci Alvarado PA-C. I agree with the above. Pt requiring frequent narcotics d/t pain associated with chest tube. Pt with distended abdomen. KUB (08/25) --> constipation, ileus will give relistor Case d/w Pulm Med, Dr. Neal. Okay for pt to have CAT Thorax with chest tube off suction while in radiology. Pt to resume chest to suction upon return from radiology department. Problem Qualifiers (1) Pneumothorax: Qualified Codes: J93.9 - Pneumothorax, unspecified Nanci Alvarado Aug 25, 2017 13:38 Dany Vaughan DO Aug 25, 2017 22:53
[2017-08-25] MEDS ORDERED: BISACODYL 10 MG SUPP RECTAL PRN (13:45)
[2017-08-25] MEDS ORDERED: LACTULOSE SYRUP 20 GM/30 ML CUP PO ONE (13:45)
[2017-08-25] MEDS ORDERED: ACETAMINOPHEN/HYDROcodone 325 MG/10 MG TAB PO PRN (17:15)
--- NOTE | 2017-08-25 19:21 | RADRPT ---
EXAM DATE/TIME: 08/25/2017 18:43 [facility] COMPARISON: No previous studies available for comparison. INDICATIONS : Constipation. MEDICAL HISTORY : Myocardial infarction. SURGICAL HISTORY : Right sided chest tube. Stents. ENCOUNTER: Initial ACUITY: 3 days PAIN SCORE: 10/10 LOCATION: Bilateral abdomen FINDINGS: Is present. No free air. No definite evidence of bowel obstruction. Moderate constipation. CONCLUSION: 1. Moderate constipation and ileus. No free air identified. Hernan Cordero MD on August 25, 2017 at 19:19 Board Certified Radiologist. This report was verified electronically.
[2017-08-25] MEDS: DOCUSATE SODIUM 100 MG CAP PO SCH (21:27)
[2017-08-25] MEDS: ATORVASTATIN 80 MG TAB PO SCH (21:27)
[2017-08-25] MEDS ORDERED: METHYLNALTREXONE BROMIDE 12 MG/0.6 ML VIAL SQ ONE (22:45)
[2017-08-25] MEDS: MORPHINE SULFATE 4 MG/ML INJ IV PRN (23:49)
[2017-08-26] VITALS (24 sets, daily range): BP systolic 115–136; BP diastolic 65–71; PULSE 59–75; RESP 16–20; TEMP 97.8–98.3; O2SAT 92–97
[2017-08-26] MEDS: RESP: ALBUTEROL 2.5 MG/IPRATROPIUM 0.5 MG NEB (SCH) NEB ×3 (09:20→19:36)
[2017-08-26] MEDS: BUDESONIDE-FORMOTEROL 160/4.5 MCG INHALER INH SCH ×2 (09:31→21:02)
[2017-08-26] MEDS: SODIUM CHLORIDE 0.9% FLUSH 10 ML FLUSH IV FLUSH SCH ×2 (09:31→21:00)
[2017-08-26] MEDS: DOCUSATE SODIUM 100 MG CAP PO SCH ×2 (09:31→21:03)
[2017-08-26] MEDS: NABUMETONE 500 MG TAB PO SCH ×2 (09:32→21:03)
[2017-08-26] MEDS: LEVOFLOXACIN 500 MG TAB PO SCH (09:32)
[2017-08-26] MEDS: ATENOLOL 25 MG TAB PO SCH ×2 (09:32→21:03)
[2017-08-26] MEDS: lamoTRIgine 100 MG TAB PO SCH (09:32)
[2017-08-26] MEDS: QUEtiapine FUMARATE 100 MG TAB PO SCH ×2 (09:32→21:04)
[2017-08-26] MEDS: FENOFIBRATE 145 MG TAB PO SCH (09:32)
[2017-08-26] MEDS: SERTRALINE HCL 100 MG TAB PO SCH (09:42)
--- NOTE | 2017-08-26 09:57 | RADRPT ---
EXAM DATE/TIME: 08/26/2017 08:14 [facility] COMPARISON: ABDOMEN KUB ONLY, August 25, 2017, 18:43. INDICATIONS : Constipation. MEDICAL HISTORY : Myocardial infarction. SURGICAL HISTORY : Right sided chest tube. Stents. ENCOUNTER: Initial ACUITY: 3 days PAIN SCORE: 0/10 LOCATION: Bilateral abdomen. FINDINGS: Supine view of the abdomen was performed. The abdominal bowel gas pattern is normal. Persistent mode rate stool is noted. No abnormal masses, calcifications, or organomegaly is seen. The osseous struct ures are unremarkable. CONCLUSION: Moderate stool burden. Otherwise unremarkable exam.. Jacqueline Woods MD on August 26, 2017 at 9:54 Board Certified Radiologist. This report was verified electronically.
--- NOTE | 2017-08-26 10:52 | HHI.PR ---
Subjective Remarks Patient reports feeling better after large BM last night offers no new complaints denies SOB Objective Vitals Vital Signs Date Time Temp Pulse Resp B/P (MAP) Pulse Ox O2 Delivery O2 Flow Rate FiO2 08/26/17 09:21 93 08/26/17 07:00 98.1 70 18 123/71 (88) 93 08/26/17 06:00 65 08/26/17 05:00 66 08/26/17 04:00 98.1 65 16 115/67 (83) 94 08/26/17 04:00 63 08/26/17 03:00 69 08/26/17 02:00 65 08/26/17 01:00 69 08/26/17 01:00 94 Room Air 08/26/17 00:00 94 Room Air 08/25/17 23:53 97.6 67 14 97/71 (80) 93 08/25/17 23:00 69 08/25/17 22:00 67 08/25/17 21:00 64 08/25/17 20:00 75 08/25/17 20:00 97.5 67 14 103/65 (78) 94 08/25/17 20:00 94 Room Air 08/25/17 19:58 93 21 08/25/17 19:00 89 08/25/17 18:00 63 08/25/17 17:00 66 08/25/17 16:00 62 08/25/17 15:00 64 08/25/17 15:00 98.0 63 14 100/57 (71) 94 08/25/17 14:00 65 12 101/66 (78) 92 08/25/17 14:00 63 08/25/17 13:00 58 08/25/17 12:00 63 08/25/17 11:00 65 08/25/17 11:00 97.5 65 16 96/53 (67) 96 Result Diagram: 08/22/17 0649 08/22/17 0646 Imaging Last Impressions Chest X-Ray 08/21/17 1436 Signed Impressions: Service Date/Time: Monday, August 21, 2017 14:43 - CONCLUSION: Very large right-sided pneumothorax with complete collapse of the right lung and minimal mediastinal shift to the left suggesting some degree of tension. Dr. Cox was called with the findings 3: 05 P.M. on 08/21/17. Krishan Roberts MD Objective Remarks GENERAL: This is a well-nourished, well-developed patient, in no apparent distress. CARDIOVASCULAR: Regular rate and rhythm RESPIRATORY: diminished bilateral bases with few scattered wheezes. Chest tube in place with air leak present GASTROINTESTINAL: Abdomen firm, distended with hypoactive bowel sounds through out MUSCULOSKELETAL: Extremities without clubbing, cyanosis, or edema. No joint tenderness, effusion, or edema noted. No calf tenderness. Negative Homans sign bilaterally. NEUROLOGICAL: Awake and alert. Motor and sensory grossly within normal limits. Five out of 5 muscle strength in all muscle groups. Normal speech. A/P Problem List: (1) Pneumothorax ICD Codes: J93.9 - Pneumothorax, unspecified Status: Acute Plan: sudden onset of central chest pain approximately 2 PM while at rest. Patient described the chest pain as sharp nonradiating, being by shortness of breath and diaphoresis. Chest x-ray was taken and revealed very large right-sided pneumothorax with complete collapse of the right lung and minimal mediastinal shift to the left suggesting some degree of tension. Chest tube was placed in the emergency department. Repeat chest x-ray revealed interval reinflation of the right lung post chest tube placement. - Chest tube to 20 cm suction - Consult placed to pulmonology for management of chest tube - CXR (08/23) No pneumothorax. Stable right basilar atelectasis - repeat CXR (08/24) Small right apical pneumothorax measuring 16 mm. Bibasilar atelectasis. Cardiomegaly. - Chest tube with persistent air leak - CT chest reveals moderated sized right apical pneumothorax with moderate to severe centrilobular emphysematous changes worse on the right. - Increase DuoNeb to Q4H while awake and PRN - NPO after midnight - CBC and BMP also pending DVT prophylaxis with SCDs (2) Bipolar disorder, unspecified ICD Codes: F31.9 - Bipolar disorder, unspecified Status: Chronic Plan: Continue patient's home Zoloft 200 mg by mouth daily, Seroquel 100 mg by mouth twice a day and Lamictal 200 mg by mouth daily (3) CAD (coronary artery disease) ICD Codes: I25.10 - CAD (coronary artery disease) Status: Chronic Plan: Continue patient's home atenolol 25 mg by mouth daily, atorvastatin 80 mg by mouth daily at bedtime, TriCor 145 mg by mouth daily (4) Back pain ICD Codes: M54.9 - Dorsalgia, unspecified Status: Chronic Plan: Patient has back pain describes pain as a soreness worse with certain positions CT on right side also resume patient's home Nabumetone 750 mg PO BID add K Therma pad as needed (5) Constipation ICD Codes: K59.00 - Constipation, unspecified Status: Acute Plan: 08/25 Patient has not had a BM in 4 days, abd distended with hypoactive BS continue colace BID MOM and lactulose given today Dulcolax supp ordered KUB 08/25: Moderate constipation and ileus. No free air identified 08/26 patient did have BM after dulcolax supp and Relistor KUB 08/26 reviewed Moderate stool burden. Otherwise unremarkable exam. Encouraged patient to avoid narcotic use as much as possible, changed Percocet to Q6H 08/26 Relistor x 1 ordered again Assessment and Plan Patient examined. Assessment and plan formulated with Nanci Alvarado PA-C. I agree with the above. Problem Qualifiers (1) Pneumothorax: Qualified Codes: J93.9 - Pneumothorax, unspecified Nanci Alvarado Aug 26, 2017 10:52 Dany Vaughan DO Aug 30, 2017 22:18
--- NOTE | 2017-08-26 10:56 | RADRPT ---
EXAM DATE/TIME: 08/26/2017 10:18 [facility] COMPARISON: CHEST SINGLE AP, August 24, 2017, 8:34. INDICATIONS : Spontaneous pneumothorax, evaluate for Blebs. RADIATION DOSE: 9.59 CTDIvol (mGy) MEDICAL HISTORY : Cardiovascular disease. Hypertension. Osteoarthritis, Rt detached retina. SURGICAL HISTORY : None. ENCOUNTER: Initial ACUITY: 1 day PAIN SCALE: 4/10 LOCATION: Bilateral chest TECHNIQUE: Volumetric scanning of the chest was performed. Using automated exposure control and adjustment of t he mA and/or kV according to patient size, radiation dose was kept as low as reasonably achievable to obtain optimal diagnostic quality images. DICOM format image data is available electronically for r eview and comparison. Follow-up recommendations for detected pulmonary nodules are based at a minimum on nodule size and pa tient risk factors according to Fleischner Society Guidelines. FINDINGS: LUNGS: The lungs are significant for a moderate size pneumothorax involving the right lung apex and extendin g along the posterior medial aspect of the lung and along the inferior margin involving the anterior inferior portion of the right hemithorax. There is diffuse centrilobular emphysema identified through out the right upper lung and to a lesser extent within the left upper lung with areas of paraseptal e mphysematous change. There is a right-sided apically directed chest tube present identified along the anterior margin of the thorax. PLEURAE: There is no pleural thickening or pleural effusion. MEDIASTINUM: The heart and great vessels demonstrate no acute abnormality. There is no mediastinal or hilar lymph adenopathy. AXILLAE: Within normal limits. No lymphadenopathy. MUSCULOSKELETAL: Within normal limits for patient age. MISCELLANEOUS: There is a small amount of subcutaneous air identified within the anterior soft tissues and along the track of the chest tube on the right. The visualized upper abdominal organs demonstrate no acute abn ormality. CONCLUSION: Moderate sized right-sided pneumothorax involving the right lung apex and extending along the posteri or medial margin of the hemithorax additional component identified along the anterior inferior portio n of the right lower lobe. The chest tube is directed towards the lung apex anteriorly. The lungs dem onstrate moderate to severe centrilobular emphysematous change, worse within the right upper lobe and may be the cause of the patient's spontaneous pneumothorax. There are paraseptal emphysematous kaufman es seen bilaterally.. Jacqueline Woods MD on August 26, 2017 at 10:48 Board Certified Radiologist. This report was verified electronically.
[2017-08-26] MEDS ORDERED: BISACODYL 10 MG SUPP RECTAL ONE (11:30)
--- NOTE | 2017-08-26 11:40 | RADRPT ---
EXAM DATE/TIME: 08/26/2017 10:52 [facility] COMPARISON: CHEST SINGLE AP, August 24, 2017, 8:34. INDICATIONS : Shortness of breath, evaluate status of prior right pneumothorax. MEDICAL HISTORY : Cardiovascular disease. Hypertension. Osteoarthritis. Right detatched retina. SURGICAL HISTORY : None. ENCOUNTER: Subsequent ACUITY: 2 days PAIN SCORE: 7/10 LOCATION: Right chest FINDINGS: AP portable upright view of the chest again demonstrates a right-sided apically directed chest tube. The small right apical pneumothorax is not well-visualized on this exam. Appearance and CT demonstrat ed only minimal apical pneumothorax but a moderate sized posterior medial and inferior pneumothorax w hich are secured by the adjacent cardiac structures. The left hemithorax remains clear. Heart size is grossly normal. CONCLUSION: Comparison recent CT demonstrated the presence of only a minimal right apical pneumothorax which is n ot visible on this plain film. The moderate sized posterior medial pneumothorax is obscured on these views by the adjacent mediastinal structures. Given the location of the pneumothorax recommend follow up of pneumothorax size with CT.. Jacqueline Woods MD on August 26, 2017 at 11:35 Board Certified Radiologist. This report was verified electronically.
[2017-08-26] MEDS ORDERED: METHYLNALTREXONE BROMIDE 12 MG/0.6 ML VIAL SQ ONE (11:45)
[2017-08-26] MEDS ORDERED: RESP: ALBUTEROL 2.5 MG/IPRATROPIUM 0.5 MG NEB (PRN) NEB (11:45)
[2017-08-26 12:43] LABS: BICARBONATE 25.3 MEQ/L (21.0-32.0); CALCIUM 8.9 MG/DL (8.5-10.1); CREATININE 1.6 MG/DL (0.60-1.30)
[2017-08-26] MEDS: MAGNESIUM HYDROXIDE SUSP 30 ML CUP PO PRN (16:57)
[2017-08-26] MEDS: ATORVASTATIN 80 MG TAB PO SCH (21:03)
[2017-08-27] VITALS (22 sets, daily range): BP systolic 121–146; BP diastolic 71–88; PULSE 57–73; RESP 16–20; TEMP 97.7–98.3; O2SAT 92–96
[2017-08-27] MEDS: RESP: ALBUTEROL 2.5 MG/IPRATROPIUM 0.5 MG NEB (SCH) NEB ×4 (08:50→19:56)
--- NOTE | 2017-08-27 09:54 | HHI.PR ---
Subjective Remarks pt says he moved bowels no significant pain Objective Vitals heart reg lung good air entry left chest tube abd s/nt. bs ext no edema Vital Signs Date Time Temp Pulse Resp B/P (MAP) Pulse Ox O2 Delivery O2 Flow Rate FiO2 08/27/17 08:52 94 21 08/27/17 06:16 57 08/27/17 03:57 98.3 64 124/77 (93) 92 08/27/17 03:00 58 08/27/17 00:00 98.1 63 122/73 (89) 92 08/26/17 23:00 59 08/26/17 20:00 98.3 75 136/71 (92) 92 08/26/17 20:00 Room Air 2.00 21 08/26/17 19:37 95 08/26/17 19:00 60 08/26/17 18:00 72 08/26/17 17:00 71 08/26/17 16:00 71 08/26/17 15:30 97.8 72 20 122/65 (84) 95 08/26/17 15:00 70 08/26/17 14:00 70 08/26/17 13:00 72 08/26/17 12:00 71 08/26/17 11:00 70 08/26/17 11:00 97.9 68 16 119/69 (86) 97 08/26/17 10:00 73 Result Diagram: 08/26/17 1129 Imaging Last Impressions Chest X-Ray 08/21/17 1436 Signed Impressions: Service Date/Time: Monday, August 21, 2017 14:43 - CONCLUSION: Very large right-sided pneumothorax with complete collapse of the right lung and minimal mediastinal shift to the left suggesting some degree of tension. Dr. Cox was called with the findings 3: 05 P.M. on 08/21/17. Krishan Roberts MD A/P Problem List: (1) Pneumothorax ICD Codes: J93.9 - Pneumothorax, unspecified Status: Acute Plan: sudden onset of central chest pain approximately 2 PM while at rest. Patient described the chest pain as sharp nonradiating, being by shortness of breath and diaphoresis. Chest x-ray was taken and revealed very large right-sided pneumothorax with complete collapse of the right lung and minimal mediastinal shift to the left suggesting some degree of tension. Chest tube was placed in the emergency department. Repeat chest x-ray revealed interval reinflation of the right lung post chest tube placement. - Chest tube to 20 cm suction - chest tube management per pulmonary and also CTS consulted for air leak. - CXR (08/23) No pneumothorax. Stable right basilar atelectasis - repeat CXR (08/24) Small right apical pneumothorax measuring 16 mm. Bibasilar atelectasis. Cardiomegaly. - CT chest reveals moderated sized right apical pneumothorax with moderate to severe centrilobular emphysematous changes worse on the right. - Increase DuoNeb to Q4H while awake and PRN -DVT prophylaxis with SCDs discussed with CTS ...no procedures today. ok to eat. pt/ asking for more laxatives. recheck bmp in AM (2) Bipolar disorder, unspecified ICD Codes: F31.9 - Bipolar disorder, unspecified Plan: Continue patient's home Zoloft 200 mg by mouth daily, Seroquel 100 mg by mouth twice a day and Lamictal 200 mg by mouth daily (3) CAD (coronary artery disease) ICD Codes: I25.10 - CAD (coronary artery disease) Status: Chronic Plan: Continue patient's home atenolol 25 mg by mouth daily, atorvastatin 80 mg by mouth daily at bedtime, TriCor 145 mg by mouth daily (4) Back pain ICD Codes: M54.9 - Dorsalgia, unspecified Status: Chronic Plan: Patient has back pain describes pain as a soreness worse with certain positions CT on right side also resume patient's home Nabumetone 750 mg PO BID add K Therma pad as needed (5) Constipation ICD Codes: K59.00 - Constipation, unspecified Status: Acute Plan: 08/25 Patient has not had a BM in 4 days, abd distended with hypoactive BS continue colace BID MOM and lactulose given KUB 08/25: Moderate constipation and ileus. No free air identified 08/26 patient did have BM after dulcolax supp and Relistor KUB 08/26 reviewed Moderate stool burden. Otherwise unremarkable exam. Encouraged patient to avoid narcotic use as much as possible, changed Percocet to Q6H pt given relistor x 2 Problem Qualifiers (1) Pneumothorax: Qualified Codes: J93.9 - Pneumothorax, unspecified Donald German MD Aug 27, 2017 09:54
[2017-08-27] MEDS ORDERED: POLYETHYLENE GLYCOL 17 GM PKG PO PRN (10:00)
[2017-08-27] MEDS: LEVOFLOXACIN 500 MG TAB PO SCH (10:26)
[2017-08-27] MEDS: NABUMETONE 500 MG TAB PO SCH ×2 (10:26→21:13)
[2017-08-27] MEDS: lamoTRIgine 100 MG TAB PO SCH (10:26)
[2017-08-27] MEDS: FENOFIBRATE 145 MG TAB PO SCH (10:26)
[2017-08-27] MEDS: DOCUSATE SODIUM 100 MG CAP PO SCH ×2 (10:26→21:14)
[2017-08-27] MEDS: SERTRALINE HCL 100 MG TAB PO SCH (10:27)
[2017-08-27] MEDS: BUDESONIDE-FORMOTEROL 160/4.5 MCG INHALER INH SCH ×2 (10:27→21:12)
[2017-08-27] MEDS: ATENOLOL 25 MG TAB PO SCH ×2 (10:27→21:14)
[2017-08-27] MEDS: SODIUM CHLORIDE 0.9% FLUSH 10 ML FLUSH IV FLUSH SCH ×2 (10:27→21:14)
[2017-08-27] MEDS: QUEtiapine FUMARATE 100 MG TAB PO SCH ×2 (10:27→21:14)
[2017-08-27] MEDS: BISACODYL EC 5 MG TABEC PO SCH (11:03)
[2017-08-27 11:38] LABS: AUTOMATED NEUTROPHIL # 4.3 TH/MM3 (1.8-7.7); BASOPHIL % 0.4 % (0.0-2.0); EOSINOPHIL # 0.2 TH/MM3 (0-0.4); EOSINOPHIL % 3.7 % (0.0-4.0); HEMOGLOBIN 13.2 GM/DL (13.0-17.0); LYMPH % 14.9 % (9.0-44.0); LYMPHOCYTE # 0.9 TH/MM3 (1.0-4.8); MEAN CELL VOLUME 87.6 FL (80.0-100.0); MEAN CORPUSCULAR HEMOGLOBIN 29.6 PG (27.0-34.0); MEAN CORPUSCULAR HGB CONC 33.8 % (32.0-36.0); MEAN PLATELET VOLUME 8.4 FL (7.0-11.0); MONO % 8.8 % (0.0-8.0); MONOCYTE # 0.5 TH/MM3 (0-0.9); NEUT % 72.2 % (16.0-70.0); PLATELET COUNT 238 TH/MM3 (150-450); RED BLOOD COUNT 4.45 MIL/MM3 (4.50-5.90); RED CELL DISTRIBUTION WIDTH 14.1 % (11.6-17.2)
--- NOTE | 2017-08-27 14:36 | PD.CAR.PN ---
CVT Progress Note Subjective/Hospital Course: A 57-year-old patient of Dr. Jarret Serra and Dr. Harrington presented on the after developing some sharp chest pain in the afternoon. He said he bent over to pick something up and then he felt a pop on Sunday. He was lifting some heavy objects on Sunday prior. He has a history of coronary artery disease and thought that it might be related to his cardiac history and he took an aspirin and some sublingual nitro with no improvement, so he proceeded to the emergency room. Upon ER admission, it revealed a large right-sided pneumothorax with complete collapse of the right lung and minimal mediastinal shift to the left, suggesting of some degree of tension. Chest tube was placed and repeat showed interval reinflation of the right lung post-chest tube. We were consulted due to persistent air leak. His chest x-ray this morning shows a persistent small right apical pneumo, bibasilar atelectasis, cardiomegaly. PAST MEDICAL HISTORY: Significant for coronary artery disease, detached retina, hypertension, hyperlipidemia, bipolar disorder, migraine headaches, osteoarthritis. cardiac catheterization in 1999 with a stent placement. Repeat cardiac catheterization in 2011 with in-stent restenosis. He is treated medically. He is followed by Dr. Gant. 08/27 pt has persistent continuous air leak for surgery on sun right VATS, possible thoracotomy, lobectomy Objective: GENERAL: A&O x 3 SKIN: Warm and dry. HEAD: Normocephalic. EYES: No scleral icterus. No injection or drainage. NECK: Supple, trachea midline. No JVD or lymphadenopathy. CARDIOVASCULAR: Regular rate and rhythm without murmurs, gallops, or rubs. RESPIRATORY: Breath sounds equal bilaterally. No accessory muscle use. more diminished on the right , chest tube 20cm suction + 3 air leak GASTROINTESTINAL: Abdomen soft, non-tender, nondistended. MUSCULOSKELETAL: No cyanosis, or edema. BACK: Nontender without obvious deformity. No CVA tenderness. Vital Signs Date Time Temp Pulse Resp B/P (MAP) Pulse Ox O2 Delivery O2 Flow Rate FiO2 08/27/17 11:00 65 08/27/17 11:00 97.9 65 16 134/71 (92) 96 08/27/17 08:52 94 21 08/27/17 08:00 92 Room Air 08/27/17 07:00 66 08/27/17 07:00 97.9 66 16 138/88 (105) 92 08/27/17 06:16 57 08/27/17 03:57 98.3 64 124/77 (93) 92 08/27/17 03:00 58 08/27/17 00:00 98.1 63 122/73 (89) 92 08/26/17 23:00 59 08/26/17 20:00 98.3 75 136/71 (92) 92 08/26/17 20:00 Room Air 2.00 21 08/26/17 19:37 95 08/26/17 19:00 60 08/26/17 18:00 72 08/26/17 17:00 71 08/26/17 16:00 71 08/26/17 15:30 97.8 72 20 122/65 (84) 95 08/26/17 15:00 70 Labs: Laboratory Tests Test 08/27/17 10:57 White Blood Count 6.0 TH/MM3 (4.0-11.0) Red Blood Count 4.45 MIL/MM3 (4.50-5.90) Hemoglobin 13.2 GM/DL (13.0-17.0) Hematocrit 39.0 % (39.0-51.0) Mean Corpuscular Volume 87.6 FL (80.0-100.0) Mean Corpuscular Hemoglobin 29.6 PG (27.0-34.0) Mean Corpuscular Hemoglobin Concent 33.8 % (32.0-36.0) Red Cell Distribution Width 14.1 % (11.6-17.2) Platelet Count 238 TH/MM3 (150-450) Mean Platelet Volume 8.4 FL (7.0-11.0) Neutrophils (%) (Auto) 72.2 % (16.0-70.0) Lymphocytes (%) (Auto) 14.9 % (9.0-44.0) Monocytes (%) (Auto) 8.8 % (0.0-8.0) Eosinophils (%) (Auto) 3.7 % (0.0-4.0) Basophils (%) (Auto) 0.4 % (0.0-2.0) Neutrophils # (Auto) 4.3 TH/MM3 (1.8-7.7) Lymphocytes # (Auto) 0.9 TH/MM3 (1.0-4.8) Monocytes # (Auto) 0.5 TH/MM3 (0-0.9) Eosinophils # (Auto) 0.2 TH/MM3 (0-0.4) Basophils # (Auto) 0.0 TH/MM3 (0-0.2) CBC Comment DIFF FINAL Differential Comment Result Diagram: 08/27/17 1057 08/26/17 1129 (1) CAD (coronary artery disease) (2) Pneumothorax Plan: for right VATS on Sun (3) Bipolar disorder, unspecified Problem Qualifiers (1) Pneumothorax: Qualified Codes: J93.9 - Pneumothorax, unspecified Jacqueline Lezama Aug 27, 2017 14:36
[2017-08-27] MEDS ORDERED: VANCOMYCIN INJ 1,500 MG in SODIUM CHLORID 0.9% 500 ML INJ 500 ML IV SCH (14:45)
[2017-08-27] MEDS ORDERED: CHLORHEXIDINE GLUCONATE 4% SOLN 120 ML BTL TOPICAL SCH (14:45)
[2017-08-27] MEDS ORDERED: DEXTROSE 50% IN WATER 50 ML VIAL(D50) IV PUSH PRN (14:45)
[2017-08-27] MEDS ORDERED: INSULIN REGULAR (IV INFUSION) 100 UNITS in SODIUM CHLORIDE 0.9% INJ 99 ML IV PRN (14:45)
[2017-08-27] MEDS ORDERED: SODIUM CHLORIDE 0.9% FLUSH 10 ML FLUSH IV FLUSH PRN (14:45)
[2017-08-27] MEDS ORDERED: VANCOMYCIN INJ 1,000 MG in SODIUM CHLORIDE 0.9% IRR BTL 1,000 ML IRRIGATION SCH (14:45)
--- NOTE | 2017-08-27 16:55 | RADRPT ---
EXAM DATE/TIME: 08/27/2017 16:29 [facility] COMPARISON: CHEST SINGLE AP, August 26, 2017, 10:52. INDICATIONS : Evaluate for pneumothorax, pneumonia or communicable disease. Pre-op for thoracic right lung surgery. MEDICAL HISTORY : Cardiovascular disease. Hypertension. Osteoarthritis. Right detatched. SURGICAL HISTORY : None. ENCOUNTER: Subsequent ACUITY: 2 weeks PAIN SCORE: 6/10 LOCATION: Bilateral chest FINDINGS: The examination demonstrates a chest tube in place on the right. There is a small right-sided pneumot horax. The heart is mildly enlarged. The left lung is clear. The visualized bony structures are grossly intact. CONCLUSION: 1. Right-sided chest tube in place. There is a small right-sided pneumothorax. Alfredo Blackmon MD on August 27, 2017 at 16:52 Board Certified Radiologist. This report was verified electronically.
--- NOTE | 2017-08-27 17:34 | PD.WCN.NOT ---
Wound Consult Description: Received consult from Doctor Maxi for evaluation of pressure ulcer to buttocks, reddened buttocks. Communicated with: RN Monica Merino [facility] Recommendation: 1.Please keep buttock area clean and dry. Please use remedy incontinence wipes to clean buttock area. 2. Apply Calazime barrier cream BID and PRN and leave open to air. 3. Please assist and encourage patient to reposition in bed every 2 hours and PRN for comfort and offloading of pressure from markie prominences. 4. Please encourage and assist patient was repositioning in chair while sitting every 15 minutes. 5. Please order air cushion from [facility]. Additional Information: Patient seen on [facility] for evaluation of pressure ulcer to buttocks, reddened buttocks around 1630. Patient stood with assistance for wound assessment. Patient noted with intact skin to that erythematous and blanchable to buttock area. Patient instructed to turn off buttocks for pressure relief every 2 hours while in bed. Patient instructed to reposition self in chair every 15 minutes. RN will continue to apply barrier cream and obtain Air cushion from [facility]. No pressure injuries are seen at this time. Radha Ferrari [facility] Aug 27, 2017 17:34
--- NOTE | 2017-08-27 18:33 | HHI.PR ---
Subjective Remarks He is alert and stable and chest tube is still leaking. CXR shows a Min Pneumothorax. Off O2. No fever. Objective Vital Signs Date Time Temp Pulse Resp B/P (MAP) Pulse Ox O2 Delivery O2 Flow Rate FiO2 08/27/17 11:00 65 08/27/17 11:00 97.9 65 16 134/71 (92) 96 08/27/17 10:00 63 08/27/17 09:00 63 08/27/17 08:52 94 21 08/27/17 08:00 64 08/27/17 08:00 92 Room Air 08/27/17 07:00 66 08/27/17 07:00 97.9 66 16 138/88 (105) 92 08/27/17 06:16 57 08/27/17 03:57 98.3 64 124/77 (93) 92 08/27/17 03:00 58 08/27/17 00:00 98.1 63 122/73 (89) 92 08/26/17 23:00 59 08/26/17 20:00 98.3 75 136/71 (92) 92 08/26/17 20:00 Room Air 2.00 21 08/26/17 19:37 95 08/26/17 19:00 60 I/O 08/26/17 08/26/17 08/26/17 08/27/17 08/27/17 08/27/17 07:00 15:00 23:00 07:00 15:00 23:00 Intake Total 240 ml 600 ml 240 ml Output Total 670 ml 1521 ml 680 ml Balance -430 ml -921 ml -440 ml Intake Oral 240 ml 600 ml 240 ml IV Total 0 ml Output Urine Total 650 ml 1500 ml 680 ml Stool Total 1 ml Chest Tube Drainage Total 20 ml 20 ml # Bowel Movements 1 Result Diagram: 08/27/17 1057 08/26/17 1129 Objective Remarks GENERAL: This averagely built middle-aged white male is alert and in no acute distress. No icterus, cyanosis or edema. HEENT: Head is normocephalic, pupils reactive and equal. Throat is clear. Nasal mucosa injected. Ears, no inflammation. NECK: Supple, no bruits or thyroid enlargement, lymphadenopathy. CHEST: Increased AP Diameter, with percussion Note resonant throughout. Breath sounds slightly diminished at the right apex. A few wheezes anteriorly. CARDIOVASCULAR: Heart sounds are regular, S1 and S2, with no murmur, no S3. ABDOMEN: Soft, benign. No mass, no organomegaly, tenderness. Bowel sounds are active. EXTREMITIES: No lesions, or edema. Reflexes 1+, with no gross motor deficits. SKIN: No lesions observed. Assessment and Plan Assessment and Plan IMPRESSION: 1. Spontaneous pneumothorax, right chest. 2. Chronic obstructive pulmonary disease with emphysema. 3. Bipolar disorder. 4. History of coronary artery disease. 5. Hypertension. Plan : 1. Chest tube to suction . 2. Nebs qid , duoneb. 3. CXR ,BMP in am. 4. Levaquin 500 mg daily 5. For Vats Pleurodesis on Sun 6. IS at Bedside q2h. El Neal MD Aug 27, 2017 18:33
[2017-08-27] MEDS ORDERED: SODIUM CHLORIDE 0.9% FLUSH 10 ML FLUSH IV FLUSH SCH (21:00)
[2017-08-27] MEDS: ATORVASTATIN 80 MG TAB PO SCH (21:13)
[2017-08-27 22:37] LABS: BILIRUBIN, URINE NEG (NEG); BLOOD, URINE NEG (NEG); GLUCOSE,URINE NEG (NEG); HYALINE CAST, URINE 1 /lpf (RARE); KETONE, URINE NEG (NEG); MUCUS URINE FEW /lpf (OCC); NITRITE,URINE NEG (NEG); PH, URINE 6.5 (5.0-8.5); SQUAMOUS EPITHELIAL CELL URINE <1 /hpf (0-5); URINE COLOR YELLOW (YELLW/STRAW); URINE LEUKOCYTE ESTERASE NEG (NEG)
[2017-08-28] VITALS (24 sets, daily range): BP systolic 127–140; BP diastolic 68–86; PULSE 61–90; RESP 16–18; TEMP 97.8–98.8; O2SAT 92–97
[2017-08-28 06:18] LABS: AUTOMATED NEUTROPHIL # 3.1 TH/MM3 (1.8-7.7); BASOPHIL % 0.6 % (0.0-2.0); EOSINOPHIL # 0.3 TH/MM3 (0-0.4); EOSINOPHIL % 5.2 % (0.0-4.0); HEMATOCRIT 35.7 % (39.0-51.0); HEMOGLOBIN 12.2 GM/DL (13.0-17.0); LYMPH % 22.6 % (9.0-44.0); LYMPHOCYTE # 1.1 TH/MM3 (1.0-4.8); MEAN CELL VOLUME 86.7 FL (80.0-100.0); MEAN CORPUSCULAR HEMOGLOBIN 29.7 PG (27.0-34.0); MEAN CORPUSCULAR HGB CONC 34.2 % (32.0-36.0); MEAN PLATELET VOLUME 8.3 FL (7.0-11.0); MONO % 9.8 % (0.0-8.0); MONOCYTE # 0.5 TH/MM3 (0-0.9); NEUT % 61.8 % (16.0-70.0); PLATELET COUNT 205 TH/MM3 (150-450); RED BLOOD COUNT 4.11 MIL/MM3 (4.50-5.90)
[2017-08-28 06:19] LABS: INTERNATIONAL NORMALIZED RATIO 1.1 RATIO; PROTHROMBIN TIME - PATIENT 11.1 SEC (9.8-11.6)
[2017-08-28 06:40] LABS: BICARBONATE 26.2 MEQ/L (21.0-32.0); CREATININE 1.25 MG/DL (0.60-1.30)
[2017-08-28] MEDS: RESP: ALBUTEROL 2.5 MG/IPRATROPIUM 0.5 MG NEB (SCH) NEB ×4 (08:42→19:54)
--- NOTE | 2017-08-28 08:46 | HHI.PR ---
Subjective Remarks no complaints pain controlled bowels moving. Objective Vitals heart reg lung left chest tube abd s/nt. bs ext no edema Vital Signs Date Time Temp Pulse Resp B/P (MAP) Pulse Ox O2 Delivery O2 Flow Rate FiO2 08/28/17 08:42 97 21 08/28/17 07:00 98.7 62 16 140/84 (102) 97 08/28/17 05:00 75 08/28/17 04:00 90 08/28/17 03:00 98.7 61 16 134/68 (90) 95 08/28/17 01:00 69 08/28/17 00:00 70 08/27/17 23:00 98.2 73 18 146/75 (98) 96 08/27/17 23:00 68 08/27/17 22:00 70 08/27/17 21:00 72 08/27/17 20:00 73 08/27/17 20:00 98.2 73 18 146/75 (98) 96 08/27/17 20:00 96 Room Air 08/27/17 19:58 96 21 08/27/17 18:00 68 08/27/17 17:00 70 08/27/17 16:00 64 08/27/17 15:00 70 08/27/17 15:00 97.7 71 20 121/74 (90) 92 08/27/17 14:00 70 08/27/17 13:00 68 08/27/17 12:00 66 08/27/17 11:00 65 08/27/17 11:00 97.9 65 16 134/71 (92) 96 08/27/17 10:00 63 08/27/17 09:00 63 08/27/17 08:52 94 21 Result Diagram: 08/28/17 0445 08/28/17 0445 Imaging Last Impressions Chest X-Ray 08/21/17 1436 Signed Impressions: Service Date/Time: Monday, August 21, 2017 14:43 - CONCLUSION: Very large right-sided pneumothorax with complete collapse of the right lung and minimal mediastinal shift to the left suggesting some degree of tension. Dr. Cox was called with the findings 3: 05 P.M. on 08/21/17. Krishan Roberts MD A/P Problem List: (1) Pneumothorax ICD Codes: J93.9 - Pneumothorax, unspecified Status: Acute Plan: sudden onset of central chest pain approximately 2 PM while at rest. Patient described the chest pain as sharp nonradiating, being by shortness of breath and diaphoresis. Chest x-ray was taken and revealed very large right-sided pneumothorax with complete collapse of the right lung and minimal mediastinal shift to the left suggesting some degree of tension. Chest tube was placed in the emergency department. Repeat chest x-ray revealed interval reinflation of the right lung post chest tube placement. - Chest tube to 20 cm suction - chest tube management per pulmonary and also CTS consulted for air leak. - CXR (08/23) No pneumothorax. Stable right basilar atelectasis - repeat CXR (08/24) Small right apical pneumothorax measuring 16 mm. Bibasilar atelectasis. Cardiomegaly. - CT chest reveals moderated sized right apical pneumothorax with moderate to severe centrilobular emphysematous changes worse on the right. - Increased DuoNeb to Q4H while awake and PRN -DVT prophylaxis with SCDs Plan for CTS to take pt to operating room on Sunday. cont current rx. (2) Bipolar disorder, unspecified ICD Codes: F31.9 - Bipolar disorder, unspecified Plan: Continue patient's home Zoloft 200 mg by mouth daily, Seroquel 100 mg by mouth twice a day and Lamictal 200 mg by mouth daily (3) CAD (coronary artery disease) ICD Codes: I25.10 - CAD (coronary artery disease) Status: Chronic Plan: Continue patient's home atenolol 25 mg by mouth daily, atorvastatin 80 mg by mouth daily at bedtime, TriCor 145 mg by mouth daily (4) Back pain ICD Codes: M54.9 - Dorsalgia, unspecified Status: Chronic Plan: Patient has back pain describes pain as a soreness worse with certain positions CT on right side also resume patient's home Nabumetone 750 mg PO BID add K Therma pad as needed (5) Constipation ICD Codes: K59.00 - Constipation, unspecified Status: Acute Plan: 08/25 Patient has not had a BM in 4 days, abd distended with hypoactive BS continue colace BID MOM and lactulose given KUB 08/25: Moderate constipation and ileus. No free air identified 08/26 patient did have BM after dulcolax supp and Relistor KUB 08/26 reviewed Moderate stool burden. Otherwise unremarkable exam. Encouraged patient to avoid narcotic use as much as possible, changed Percocet to Q6H pt given relistor x 2 Problem Qualifiers (1) Pneumothorax: Qualified Codes: J93.9 - Pneumothorax, unspecified Donald German MD Aug 28, 2017 08:46
[2017-08-28] MEDS: SODIUM CHLORIDE 0.9% FLUSH 10 ML FLUSH IV FLUSH SCH ×2 (09:00→22:27)
[2017-08-28] MEDS: BISACODYL EC 5 MG TABEC PO SCH (09:00)
[2017-08-28] MEDS: NABUMETONE 500 MG TAB PO SCH ×2 (09:49→22:26)
[2017-08-28] MEDS: BUDESONIDE-FORMOTEROL 160/4.5 MCG INHALER INH SCH ×2 (09:49→22:24)
[2017-08-28] MEDS: LEVOFLOXACIN 500 MG TAB PO SCH (09:50)
[2017-08-28] MEDS: lamoTRIgine 100 MG TAB PO SCH (09:50)
[2017-08-28] MEDS: QUEtiapine FUMARATE 100 MG TAB PO SCH ×2 (09:50→22:25)
[2017-08-28] MEDS: SERTRALINE HCL 100 MG TAB PO SCH (09:50)
[2017-08-28] MEDS: ATENOLOL 25 MG TAB PO SCH ×2 (09:50→22:25)
[2017-08-28] MEDS: DOCUSATE SODIUM 100 MG CAP PO SCH ×2 (09:50→22:25)
[2017-08-28] MEDS: FENOFIBRATE 145 MG TAB PO SCH (09:51)
--- NOTE | 2017-08-28 12:09 | HHI.PR ---
Subjective Remarks He is alert and chest tube is still leaking. CXR shows a Min Pneumothorax. Off O2. Will go fo Vats thoracotomy Objective Vital Signs Date Time Temp Pulse Resp B/P (MAP) Pulse Ox O2 Delivery O2 Flow Rate FiO2 08/28/17 10:41 66 08/28/17 08:42 97 21 08/28/17 08:25 64 08/28/17 08:25 97 Room Air 08/28/17 07:54 64 08/28/17 07:00 98.7 62 16 140/84 (102) 97 08/28/17 05:00 75 08/28/17 04:00 90 08/28/17 03:00 98.7 61 16 134/68 (90) 95 08/28/17 01:00 69 08/28/17 00:00 70 08/27/17 23:00 98.2 73 18 146/75 (98) 96 08/27/17 23:00 68 08/27/17 22:00 70 08/27/17 21:00 72 08/27/17 20:00 73 08/27/17 20:00 98.2 73 18 146/75 (98) 96 08/27/17 20:00 96 Room Air 08/27/17 19:58 96 21 08/27/17 18:00 68 08/27/17 17:00 70 08/27/17 16:00 64 08/27/17 15:00 70 08/27/17 15:00 97.7 71 20 121/74 (90) 92 08/27/17 14:00 70 08/27/17 13:00 68 I/O 08/27/17 08/27/17 08/27/17 08/28/17 08/28/17 08/28/17 07:00 15:00 23:00 07:00 15:00 23:00 Intake Total 240 ml 800 ml 480 ml Output Total 680 ml 1774 ml 975 ml Balance -440 ml -974 ml -495 ml Intake Oral 240 ml 800 ml 480 ml Output Urine Total 680 ml 1740 ml 950 ml Chest Tube Drainage Total 34 ml 25 ml # Bowel Movements 1 2 1 Result Diagram: 08/28/175 08/28/175 Objective Remarks GENERAL: This averagely built middle-aged white male is alert and in no acute distress. No icterus, cyanosis or edema. HEENT: Head is normocephalic, pupils reactive and equal. Throat is clear. Nasal mucosa clear. Ears, no inflammation. NECK: Supple, no bruits or thyroid enlargement, lymphadenopathy. CHEST: Increased AP Diameter, with percussion Note resonant throughout. Breath sounds diminished at the right apex. A few wheezes anteriorly. CARDIOVASCULAR: Heart sounds are regular, S1 and S2, with no murmur, no S3. ABDOMEN: Soft, benign. No mass, no organomegaly, tenderness. Bowel sounds are active. EXTREMITIES: No lesions, or edema. Reflexes 1+, with no gross motor deficits. SKIN: No lesions observed. Assessment and Plan Assessment and Plan IMPRESSION: 1. Spontaneous pneumothorax, right chest. 2. Chronic obstructive pulmonary disease with emphysema. 3. Bipolar disorder. 4. History of coronary artery disease. 5. Hypertension. Plan : 1. Chest tube to wall suction . 2. Nebs qid , duoneb. 3. CXR ,BMP in am. 4. Levaquin 500 mg daily 5. For Vats Pleurodesis in am 6. IS at Bedside q2h. 7. Continue antibiotic El Neal MD Aug 28, 2017 12:09
--- NOTE | 2017-08-28 14:53 | PD.CAR.PN ---
CVT Progress Note Subjective/Hospital Course: A 57-year-old patient of Dr. Jarret Serra and Dr. Harrington presented on the after developing some sharp chest pain in the afternoon. He said he bent over to pick something up and then he felt a pop on Sunday. He was lifting some heavy objects on Sunday prior. He has a history of coronary artery disease and thought that it might be related to his cardiac history and he took an aspirin and some sublingual nitro with no improvement, so he proceeded to the emergency room. Upon ER admission, it revealed a large right-sided pneumothorax with complete collapse of the right lung and minimal mediastinal shift to the left, suggesting of some degree of tension. Chest tube was placed and repeat showed interval reinflation of the right lung post-chest tube. We were consulted due to persistent air leak. His chest x-ray this morning shows a persistent small right apical pneumo, bibasilar atelectasis, cardiomegaly. PAST MEDICAL HISTORY: Significant for coronary artery disease, detached retina, hypertension, hyperlipidemia, bipolar disorder, migraine headaches, osteoarthritis. cardiac catheterization in 1999 with a stent placement. Repeat cardiac catheterization in 2011 with in-stent restenosis. He is treated medically. He is followed by Dr. Gant. 08/27 pt has persistent continuous air leak for surgery on wed right VATS, possible thoracotomy, lobectomy 08/28 for surgery tomorrow Objective: Vital Signs Date Time Temp Pulse Resp B/P (MAP) Pulse Ox O2 Delivery O2 Flow Rate FiO2 08/28/17 14:41 67 08/28/17 12:19 87 08/28/17 12:17 98.8 87 16 140/86 (104) 93 08/28/17 10:41 66 08/28/17 08:42 97 21 08/28/17 08:25 64 08/28/17 08:25 97 Room Air 08/28/17 07:54 64 08/28/17 07:00 98.7 62 16 140/84 (102) 97 08/28/17 05:00 75 08/28/17 04:00 90 08/28/17 03:00 98.7 61 16 134/68 (90) 95 08/28/17 01:00 69 08/28/17 00:00 70 08/27/17 23:00 98.2 73 18 146/75 (98) 96 08/27/17 23:00 68 08/27/17 22:00 70 08/27/17 21:00 72 08/27/17 20:00 73 08/27/17 20:00 98.2 73 18 146/75 (98) 96 08/27/17 20:00 96 Room Air 08/27/17 19:58 96 21 08/27/17 18:00 68 08/27/17 17:00 70 08/27/17 16:00 64 08/27/17 15:00 70 08/27/17 15:00 97.7 71 20 121/74 (90) 92 Labs: Laboratory Tests Test 08/28/17 04:45 White Blood Count 5.0 TH/MM3 (4.0-11.0) Red Blood Count 4.11 MIL/MM3 (4.50-5.90) Hemoglobin 12.2 GM/DL (13.0-17.0) Hematocrit 35.7 % (39.0-51.0) Mean Corpuscular Volume 86.7 FL (80.0-100.0) Mean Corpuscular Hemoglobin 29.7 PG (27.0-34.0) Mean Corpuscular Hemoglobin Concent 34.2 % (32.0-36.0) Red Cell Distribution Width 14.0 % (11.6-17.2) Platelet Count 205 TH/MM3 (150-450) Mean Platelet Volume 8.3 FL (7.0-11.0) Neutrophils (%) (Auto) 61.8 % (16.0-70.0) Lymphocytes (%) (Auto) 22.6 % (9.0-44.0) Monocytes (%) (Auto) 9.8 % (0.0-8.0) Eosinophils (%) (Auto) 5.2 % (0.0-4.0) Basophils (%) (Auto) 0.6 % (0.0-2.0) Neutrophils # (Auto) 3.1 TH/MM3 (1.8-7.7) Lymphocytes # (Auto) 1.1 TH/MM3 (1.0-4.8) Monocytes # (Auto) 0.5 TH/MM3 (0-0.9) Eosinophils # (Auto) 0.3 TH/MM3 (0-0.4) Basophils # (Auto) 0.0 TH/MM3 (0-0.2) CBC Comment DIFF FINAL Differential Comment Prothrombin Time 11.1 SEC (9.8-11.6) Prothromb Time International Ratio 1.1 RATIO Blood Urea Nitrogen 26 MG/DL (7-18) Creatinine 1.25 MG/DL (0.60-1.30) Random Glucose 157 MG/DL (74-106) Calcium Level 9.0 MG/DL (8.5-10.1) Sodium Level 140 MEQ/L (136-145) Potassium Level 4.0 MEQ/L (3.5-5.1) Chloride Level 105 MEQ/L (98-107) Carbon Dioxide Level 26.2 MEQ/L (21.0-32.0) Anion Gap 9 MEQ/L (5-15) Estimat Glomerular Filtration Rate 59 ML/MIN (>89) Result Diagram: 08/28/175 08/28/175 (1) CAD (coronary artery disease) (2) Pneumothorax Plan: for right VATS on Sun (3) Bipolar disorder, unspecified Problem Qualifiers (1) Pneumothorax: Qualified Codes: J93.9 - Pneumothorax, unspecified Jacqueline Lezama Aug 28, 2017 14:53
[2017-08-28] MEDS: ATORVASTATIN 80 MG TAB PO SCH (22:24)
[2017-08-29] VITALS (25 sets, daily range): BP systolic 122–141; BP diastolic 71–89; PULSE 58–97; RESP 16–18; TEMP 98–98.6; O2SAT 95–98
--- NOTE | 2017-08-29 08:20 | HHI.PR ---
Subjective Remarks no complaints pain controlled bowel moving Objective Vitals heart reg lung left chest tube abd s/nt ext no edema Vital Signs Date Time Temp Pulse Resp B/P (MAP) Pulse Ox O2 Delivery O2 Flow Rate FiO2 08/29/17 06:00 64 08/29/17 05:32 98.1 63 16 125/83 (97) 97 08/29/17 04:00 62 08/29/17 04:00 64 08/29/17 03:00 58 08/29/17 02:00 58 08/29/17 01:00 58 08/29/17 00:08 62 08/29/17 00:00 60 08/29/17 00:00 60 08/28/17 23:00 66 08/28/17 23:00 66 08/28/17 22:00 66 08/28/17 22:00 66 08/28/17 20:17 71 08/28/17 20:00 63 18 133/75 (94) 94 08/28/17 20:00 Room Air 21 08/28/17 20:00 64 08/28/17 20:00 64 08/28/17 19:56 95 21 08/28/17 19:00 78 08/28/17 19:00 78 08/28/17 18:06 89 08/28/17 17:14 68 08/28/17 16:12 70 08/28/17 15:58 68 08/28/17 15:56 97.8 68 16 127/78 (94) 92 08/28/17 14:41 67 08/28/17 12:19 87 08/28/17 12:17 98.8 87 16 140/86 (104) 93 08/28/17 10:41 66 08/28/17 08:42 97 21 08/28/17 08:25 64 08/28/17 08:25 97 Room Air Result Diagram: 08/28/17 0445 08/28/17 0445 Imaging Last Impressions Chest X-Ray 08/21/17 1436 Signed Impressions: Service Date/Time: Monday, August 21, 2017 14:43 - CONCLUSION: Very large right-sided pneumothorax with complete collapse of the right lung and minimal mediastinal shift to the left suggesting some degree of tension. Dr. Cox was called with the findings 3: 05 P.M. on 08/21/17. Krishan Roberts MD A/P Problem List: (1) Pneumothorax ICD Codes: J93.9 - Pneumothorax, unspecified Status: Acute Plan: sudden onset of central chest pain approximately 2 PM while at rest. Patient described the chest pain as sharp nonradiating, being by shortness of breath and diaphoresis. Chest x-ray was taken and revealed very large right-sided pneumothorax with complete collapse of the right lung and minimal mediastinal shift to the left suggesting some degree of tension. Chest tube was placed in the emergency department. Repeat chest x-ray revealed interval reinflation of the right lung post chest tube placement. - Chest tube to 20 cm suction - chest tube management per pulmonary and also CTS consulted for air leak. - CXR (08/23) No pneumothorax. Stable right basilar atelectasis - repeat CXR (08/24) Small right apical pneumothorax measuring 16 mm. Bibasilar atelectasis. Cardiomegaly. - CT chest reveals moderated sized right apical pneumothorax with moderate to severe centrilobular emphysematous changes worse on the right. - Increased DuoNeb to Q4H while awake and PRN -DVT prophylaxis with SCDs Plan for CTS to take pt to operating room today for VATS and ?lobectomy if required. cont current rx. (2) Bipolar disorder, unspecified ICD Codes: F31.9 - Bipolar disorder, unspecified Plan: Continue patient's home Zoloft 200 mg by mouth daily, Seroquel 100 mg by mouth twice a day and Lamictal 200 mg by mouth daily (3) CAD (coronary artery disease) ICD Codes: I25.10 - CAD (coronary artery disease) Status: Chronic Plan: Continue patient's home atenolol 25 mg by mouth daily, atorvastatin 80 mg by mouth daily at bedtime, TriCor 145 mg by mouth daily (4) Constipation ICD Codes: K59.00 - Constipation, unspecified Status: Acute Plan: 08/25 Patient has not had a BM in 4 days, abd distended with hypoactive BS continue colace BID MOM and lactulose given KUB 08/25: Moderate constipation and ileus. No free air identified 08/26 patient did have BM after dulcolax supp and Relistor KUB 08/26 reviewed Moderate stool burden. Otherwise unremarkable exam. Encouraged patient to avoid narcotic use as much as possible, changed Percocet to Q6H pt given relistor x 2 Problem Qualifiers (1) Pneumothorax: Qualified Codes: J93.9 - Pneumothorax, unspecified Donald German MD Aug 29, 2017 08:20
[2017-08-29] MEDS: DOCUSATE SODIUM 100 MG CAP PO SCH (09:00)
[2017-08-29] MEDS: SERTRALINE HCL 100 MG TAB PO SCH (09:13)
[2017-08-29] MEDS: NABUMETONE 500 MG TAB PO SCH ×2 (09:14→20:42)
[2017-08-29] MEDS: QUEtiapine FUMARATE 100 MG TAB PO SCH ×2 (09:14→20:44)
[2017-08-29] MEDS: lamoTRIgine 100 MG TAB PO SCH (09:15)
[2017-08-29] MEDS: ATENOLOL 25 MG TAB PO SCH ×2 (09:15→20:44)
[2017-08-29] MEDS: FENOFIBRATE 145 MG TAB PO SCH (09:15)
[2017-08-29] MEDS: BUDESONIDE-FORMOTEROL 160/4.5 MCG INHALER INH SCH ×2 (09:15→20:44)
[2017-08-29] MEDS: LEVOFLOXACIN 500 MG TAB PO SCH (09:15)
[2017-08-29] MEDS: SODIUM CHLORIDE 0.9% FLUSH 10 ML FLUSH IV FLUSH SCH ×2 (09:16→20:45)
[2017-08-29] MEDS: RESP: ALBUTEROL 2.5 MG/IPRATROPIUM 0.5 MG NEB (SCH) NEB ×2 (09:27→11:49)
[2017-08-29] MEDS ORDERED: BUPIVACAINE LIPOSO PF 1.3% INJ 20 ML, DEXAMETHASONE INJ 4 MG, MORPHINE INJ 8 MG in SODI... IRRIGATION SCH (11:00)
[2017-08-29] MEDS ORDERED: ROCURONIUM INJ 50 MG/5 ML SYRINGE IV PUSH ONE (12:00)
[2017-08-29] MEDS ORDERED: GLYCOPYRROLATE 1 MG/5 ML SYRINGE IV PUSH ONE (12:00)
[2017-08-29] MEDS ORDERED: NEOSTIGMINE 5 MG/5 ML SYRINGE IV PUSH ONE (12:00)
[2017-08-29] MEDS ORDERED: LIDOCAINE HCL 1% PF 5 ML SYRINGE OTHER ONE (12:00)
[2017-08-29] MEDS ORDERED: ePHEDrine/NS 25 MG/5 ML SYRINGE IV ONE (12:00)
[2017-08-29] MEDS ORDERED: PROPOFOL 200 MG/20 ML AMP IV ONE (12:00)
[2017-08-29] MEDS ORDERED: ONDANSETRON HCL 4 MG/2 ML VIAL IV ONE (12:00)
[2017-08-29] MEDS ORDERED: SODIUM CHLORIDE 0.9% FLUSH 10 ML FLUSH IV FLUSH PRN (14:00)
[2017-08-29] MEDS ORDERED: ONDANSETRON HCL 4 MG/2 ML VIAL IV PUSH PRN (14:00)
[2017-08-29] MEDS ORDERED: Post-op Orders (for Pharmacy) OTHER ONE (14:00)
[2017-08-29] MEDS ORDERED: MAGNESIUM HYDROXIDE SUSP 30 ML CUP PO PRN (14:00)
[2017-08-29] MEDS ORDERED: DO NOT ADM ANY ANTICOAGULANT DRUGS PRN (14:08)
[2017-08-29] MEDS ORDERED: *morphine SULFATE 4 MG/ML PERIprocedure ONLY ONE ×3 (14:14→14:47)
[2017-08-29] MEDS ORDERED: HYDROmorphone HCL PF 2 MG/ML VIAL ONE (15:13)
--- NOTE | 2017-08-29 15:14 | RADRPT ---
EXAM DATE/TIME: 08/29/2017 14:30 [facility] COMPARISON: CT THORAX W/O CONTRAST, August 26, 2017, 10:18. CHEST PA & LAT, August 27, 2017, 16:29. INDICATIONS : Post thoracotomy. MEDICAL HISTORY : Cardiovascular disease. Hypertension. SURGICAL HISTORY : None. ENCOUNTER: Initial ACUITY: 1 day PAIN SCORE: 0/10 LOCATION: Bilateral chest FINDINGS: There is a small right apical pneumothorax with about 15-16 cm separation of apical pleural layers. R ight thoracostomy tube remains in satisfactory position. Medial right apical and right paratracheal d ensity has increased slightly since the prior film. The lungs or elsewhere grossly clear. No signific ant effusion is present. Cardiac contours are stable. CONCLUSION: Slight increase in prominence of medial right apical and right paratracheal density which may be some lung contusion. Small persistent apical pneumothorax. Geo Dejesus MD on August 29, 2017 at 15:05 Board Certified Radiologist. This report was verified electronically.
[2017-08-29] MEDS: KETOROLAC TROMETHAMINE 30 MG/ML (IVP) VIAL IV PUSH SCH ×2 (15:42→20:00)
[2017-08-29] MEDS ORDERED: ACETAMINOPHEN 325 MG TAB PO PRN (15:45)
--- NOTE | 2017-08-29 17:52 | PD.OP ---
cc: Wood Leija MD; Dany Vaughan DO Operative Report Date of Surgery: Aug 29, 2017 Preoperative Diagnosis: Postoperative Diagnosis: Procedure: 1. Right Video-Assisted Thoracoscopic Surgery (VATS). 2. Apical Segmental Bullae resection 3. Mechanical and Iodine Pleurodesis. 4. 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 Chronic Nicotine and Vaping Use POSTOPERATIVE DIAGNOSES Same SURGICAL PROCEDURE 1. Right Video-Assisted Thoracoscopic Surgery (VATS). 2. Apical Segmental Bullae resection 3. Mechanical and Iodine Pleurodesis. 4. Intercostal Nerve Block SURGEON Wood Leija MD MANUFACTURING ENGINEERING TECHNOLOGIST Lenore Ojeda PA-C ANESTHESIA General double lumen endotracheal. RECOVERY SPECIALIST RODRIGUEZ Ames MD PREPARATION ChloraPrep. COUNTS Needle, sponge, and instrument counts are correct. DRAINS One 32 Fr Chest Tube COMPLICATIONS None. INDICATIONS The patient is a 57 yo presenting with right tension PTX and severe bullous emphysema with a large bronchopleural fistula and air-leak. The patient is being brought to the operating room for surgical resection and pleurodesis. DESCRIPTION OF PROCEDURE The patient was brought to the operating room and placed supine on the OR table. Following the induction of adequate general double lumen endotracheal anesthesia and placement of appropriate monitoring devices, the patient was placed in the left lateral decubitus position. The previous chest tube was removed. The right chest and surrounding areas were then prepped and draped in a standard sterile fashion. A 5 mm camera port was introduced into the 8th intercostal space in mid axillary line, and the camera introduced. A second 5 mm port was then placed anteriorly under direct visual guidance and one posteriorly. The right lung was explored. The apical segment of the upper lobe was noted to be bullous with severe destructive lesions causing air-leaks. These were grasped and the majority of the apical portion of the right upper lobe was resected using a UMA stapler. Through the port site, diluted Iodine 10 % and mechanical pleurodesis was performed. The camera port was removed and a 32 Fr chest tube was placed and anchored to the chest wall. This was maintained in place with a nonabsorbable suture. Following confirmation of the catheter in the proper place, the remaining incisions were closed with 3 layers. Intercostal nerve block was performed using Ropivacaine/Morphine solution at the level of the incision as well as 3 rib spaced above and below. The CT was attached to a Pleu-evac suction device, and sterile dressing applied. The previously placed chest tube was removed and the site packed with iodoform gauze. The patient tolerated the procedure well and was extubated and transferred to the recovery room in stable condition. Wood Leija MD Aug 29, 2017 17:51
[2017-08-29] MEDS: MORPHINE SULFATE 4 MG/ML INJ IV PRN ×2 (17:55→22:27)
[2017-08-29] MEDS: ATORVASTATIN 80 MG TAB PO SCH (20:42)
[2017-08-29] MEDS: DOCUSATE CALCIUM 240 MG CAP PO SCH (20:42)
[2017-08-29] MEDS: ACETAMINOPHEN/HYDROcodone 325 MG/5 MG TAB PO PRN (20:43)
[2017-08-29] MEDS: PANTOPRAZOLE SOD 40 MG DELAYED RELEASE TAB PO SCH (20:44)
[2017-08-30] VITALS (24 sets, daily range): BP systolic 109–133; BP diastolic 55–86; PULSE 62–102; RESP 16–18; TEMP 97.8–98.4; O2SAT 90–100
[2017-08-30] MEDS: KETOROLAC TROMETHAMINE 30 MG/ML (IVP) VIAL IV PUSH SCH ×2 (02:00→08:33)
[2017-08-30] MEDS: MORPHINE SULFATE 4 MG/ML INJ IV PRN ×5 (02:50→23:29)
[2017-08-30] MEDS: VANCOMYCIN INJ 1,000 MG in SODIUM CHLORIDE 0.9% INJ 250 ML IV SCH ×2 (04:54→14:27)
[2017-08-30] MEDS: ACETAMINOPHEN/HYDROcodone 325 MG/5 MG TAB PO PRN ×2 (04:54)
--- NOTE | 2017-08-30 06:27 | RADRPT ---
EXAM DATE/TIME: 08/30/2017 05:06 [facility] COMPARISON: CHEST SINGLE AP, August 29, 2017, 14:30. INDICATIONS : Shortness of breath, possible pulmonary disease. MEDICAL HISTORY : Cardiovascular disease. Hypertension SURGICAL HISTORY : Thoracotomy ENCOUNTER: Subsequent ACUITY: 2 days PAIN SCORE: 3/10 LOCATION: Right chest FINDINGS: Right chest tube remains projected at the right apex. Right apical pneumothorax measures 1.7 cm, sta ble from prior. The lungs are clear. The heart is normal in size. CONCLUSION: Persistent 1.7 cm pneumothorax with right chest tube in place. Bernardo Faye MD on August 30, 2017 at 6:24 Board Certified Radiologist. This report was verified electronically.
[2017-08-30] MEDS: RESP: ALBUTEROL 2.5 MG/IPRATROPIUM 0.5 MG NEB (SCH) NEB (07:46)
--- NOTE | 2017-08-30 08:01 | HHI.PR ---
Subjective Remarks still with some pain. Objective Vitals heart reg lung right chest tube air entry magali abd s/nt ext no edema Vital Signs Date Time Temp Pulse Resp B/P (MAP) Pulse Ox O2 Delivery O2 Flow Rate FiO2 08/30/17 07:47 98 08/30/17 05:55 16 08/30/17 05:47 71 16 119/71 (87) 100 08/30/17 05:47 72 08/30/17 03:41 16 08/30/17 00:00 78 18 110/67 (81) 98 08/30/17 00:00 76 08/30/17 00:00 75 08/29/17 23:37 97 Nasal Cannula 2.00 08/29/17 23:00 80 08/29/17 22:00 94 08/29/17 21:00 92 08/29/17 20:00 Nasal Cannula 2.00 08/29/17 20:00 88 08/29/17 20:00 86 08/29/17 20:00 98.6 89 18 122/71 (88) 98 08/29/17 19:00 88 08/29/17 18:00 82 08/29/17 17:48 77 08/29/17 16:37 98.5 86 17 141/89 (106) 98 08/29/17 16:00 97.6 80 16 114/61 (78) 95 Nasal Cannula 2 08/29/17 15:45 73 15 110/60 (77) 95 Nasal Cannula 2 08/29/17 15:30 75 15 111/62 (78) 94 Nasal Cannula 2 08/29/17 15:15 74 15 114/63 (80) 94 Nasal Cannula 2 08/29/17 15:00 72 15 112/67 (82) 98 Nasal Cannula 3 08/29/17 14:45 71 15 115/68 (84) 98 Nasal Cannula 3 08/29/17 14:30 72 15 120/73 (89) 100 Nasal Cannula 4 08/29/17 14:15 70 14 119/74 (89) 99 Nasal Cannula 4 08/29/17 14:08 97.4 71 14 121/74 (90) 98 Nasal Cannula 4 08/29/17 11:00 66 08/29/17 10:00 66 08/29/17 09:28 95 21 08/29/17 09:05 98.2 64 140/79 (99) 95 3/21/18 09:00 97 08/29/17 09:00 97 Room Air 08/29/17 08:00 60 Result Diagram: 08/28/17 0445 08/28/17 0445 Imaging Last Impressions Chest X-Ray 08/21/17 1436 Signed Impressions: Service Date/Time: Monday, August 21, 2017 14:43 - CONCLUSION: Very large right-sided pneumothorax with complete collapse of the right lung and minimal mediastinal shift to the left suggesting some degree of tension. Dr. Cox was called with the findings 3: 05 P.M. on 08/21/17. Krishan Roberts MD A/P Problem List: (1) Pneumothorax ICD Codes: J93.9 - Pneumothorax, unspecified Status: Acute Plan: sudden onset of central chest pain approximately 2 PM while at rest. Patient described the chest pain as sharp nonradiating, being by shortness of breath and diaphoresis. Chest x-ray was taken and revealed very large right-sided pneumothorax with complete collapse of the right lung and minimal mediastinal shift to the left suggesting some degree of tension. Chest tube was placed in the emergency department. Repeat chest x-ray revealed interval reinflation of the right lung post chest tube placement. - CXR (08/23) No pneumothorax. Stable right basilar atelectasis - repeat CXR (08/24) Small right apical pneumothorax measuring 16 mm. Bibasilar atelectasis. Cardiomegaly. - CT chest reveals moderated sized right apical pneumothorax with moderate to severe centrilobular emphysematous changes worse on the right. -Persistent Air Leak -Pt taken to OR 08/29 for vats/bulla resection/pleurodesis. -still with right chest tube - cont nebs/oxygen -pain control -PT -dvt prophylaxis. (2) Bipolar disorder, unspecified ICD Codes: F31.9 - Bipolar disorder, unspecified Status: Chronic Plan: Continue patient's home Zoloft 200 mg by mouth daily, Seroquel 100 mg by mouth twice a day and Lamictal 200 mg by mouth daily (3) CAD (coronary artery disease) ICD Codes: I25.10 - CAD (coronary artery disease) Status: Chronic Plan: Continue patient's home atenolol 25 mg by mouth daily, atorvastatin 80 mg by mouth daily at bedtime, TriCor 145 mg by mouth daily (4) Constipation ICD Codes: K59.00 - Constipation, unspecified Status: Acute Plan: 08/25 Patient has not had a BM in 4 days, abd distended with hypoactive BS continue colace BID MOM and lactulose given KUB 08/25: Moderate constipation and ileus. No free air identified 08/26 patient did have BM after dulcolax supp and Relistor KUB 08/26 reviewed Moderate stool burden. Otherwise unremarkable exam. Encouraged patient to avoid narcotic use as much as possible, changed Percocet to Q6H pt given relistor x 2 Problem Qualifiers (1) Pneumothorax: Qualified Codes: J93.9 - Pneumothorax, unspecified Donald German MD Aug 30, 2017 08:00
[2017-08-30] MEDS: BUDESONIDE-FORMOTEROL 160/4.5 MCG INHALER INH SCH ×2 (08:31→21:06)
[2017-08-30] MEDS: ATENOLOL 25 MG TAB PO SCH ×2 (08:32→21:06)
[2017-08-30] MEDS: NABUMETONE 500 MG TAB PO SCH ×2 (08:32→21:09)
[2017-08-30] MEDS: LEVOFLOXACIN 500 MG TAB PO SCH (08:32)
[2017-08-30] MEDS: SERTRALINE HCL 100 MG TAB PO SCH (08:32)
[2017-08-30] MEDS: FENOFIBRATE 145 MG TAB PO SCH (08:32)
[2017-08-30] MEDS: QUEtiapine FUMARATE 100 MG TAB PO SCH ×2 (08:32→21:06)
[2017-08-30] MEDS: lamoTRIgine 100 MG TAB PO SCH (08:32)
[2017-08-30] MEDS: ACETAMINOPHEN/HYDROcodone 325 MG/10 MG TAB PO PRN ×4 (08:33→21:08)
[2017-08-30] MEDS: SODIUM CHLORIDE 0.9% FLUSH 10 ML FLUSH IV FLUSH SCH ×2 (08:33→21:10)
--- NOTE | 2017-08-30 16:04 | PD.CAR.PN ---
CVT Progress Note Subjective/Hospital Course: A 57-year-old patient of Dr. Jarret Serra and Dr. Harrington presented on the after developing some sharp chest pain in the afternoon. He said he bent over to pick something up and then he felt a pop on Sunday. He was lifting some heavy objects on Sunday prior. He has a history of coronary artery disease and thought that it might be related to his cardiac history and he took an aspirin and some sublingual nitro with no improvement, so he proceeded to the emergency room. Upon ER admission, it revealed a large right-sided pneumothorax with complete collapse of the right lung and minimal mediastinal shift to the left, suggesting of some degree of tension. Chest tube was placed and repeat showed interval reinflation of the right lung post-chest tube. We were consulted due to persistent air leak. His chest x-ray this morning shows a persistent small right apical pneumo, bibasilar atelectasis, cardiomegaly. PAST MEDICAL HISTORY: Significant for coronary artery disease, detached retina, hypertension, hyperlipidemia, bipolar disorder, migraine headaches, osteoarthritis. cardiac catheterization in 1999 with a stent placement. Repeat cardiac catheterization in 2011 with in-stent restenosis. He is treated medically. He is followed by Dr. Gant. 08/27 pt has persistent continuous air leak for surgery on wed right VATS, possible thoracotomy, lobectomy 08/28 for surgery tomorrow 08/29 1. Right Video-Assisted Thoracoscopic Surgery (VATS). 2. Apical Segmental Bullae resection 3. Mechanical and Iodine Pleurodesis. 4. Intercostal Nerve Block 08/30 doing well on room air chest tube to water seal eval for removal in am still has small right apical ptx, unchanged Objective: Vital Signs Date Time Temp Pulse Resp B/P (MAP) Pulse Ox O2 Delivery O2 Flow Rate FiO2 08/30/17 13:01 69 08/30/17 12:00 102 08/30/17 11:15 97.8 73 18 113/62 (79) 96 08/30/17 11:00 71 08/30/17 10:00 76 08/30/17 09:00 66 08/30/17 08:15 90 Room Air 08/30/17 08:15 98.2 64 18 110/55 (73) 90 08/30/17 08:00 66 08/30/17 07:47 98 08/30/17 07:01 75 08/30/17 05:55 16 08/30/17 05:47 71 16 119/71 (87) 100 08/30/17 05:47 72 08/30/17 03:41 16 08/30/17 00:00 78 18 110/67 (81) 98 08/30/17 00:00 76 08/30/17 00:00 75 08/29/17 23:37 97 Nasal Cannula 2.00 08/29/17 23:00 80 08/29/17 22:00 94 08/29/17 21:00 92 08/29/17 20:00 Nasal Cannula 2.00 08/29/17 20:00 88 08/29/17 20:00 86 08/29/17 20:00 98.6 89 18 122/71 (88) 98 08/29/17 19:00 88 08/29/17 18:00 82 08/29/17 17:48 77 08/29/17 16:37 98.5 86 17 141/89 (106) 98 08/29/17 16:00 97.6 80 16 114/61 (78) 95 Nasal Cannula 2 Result Diagram: 08/28/1744408/28/17444 (1) CAD (coronary artery disease) Plan: on ASA, statin BB (2) Pneumothorax (3) Bipolar disorder, unspecified (4) s/p right VATS Plan: pulm toileting OOB, ambulate pain control Problem Qualifiers (1) Pneumothorax: Qualified Codes: J93.9 - Pneumothorax, unspecified Jacqueline Lezama Aug 30, 2017 16:04
--- NOTE | 2017-08-30 16:08 | HHI.FF ---
Face to Face Verification Diagnosis: (1) Pneumothorax (2) CAD (coronary artery disease) (3) s/p right VATS Home Health Nursing Order: Medication education-adverse effect Wound care and dressing changes Nursing assessment with vital signs Instructions: Thoracic Surgery patients Mandatory frequency Assess and evaluation, 2-3 x a week for one week Initial visit 1. Review post chest surgery instructions chest precautions, Activity, Elastic hose, Incision care, Driving, Incentive spirometry, Smoking, [place] , Work and other) 2. Need Betadine to paint incision 3. Medication reconciliation 4. Importance of follow up care/ check on appointments 5. Make calendar record temperature daily 6. When to call Home nurse, review instructions, phone list 7. Incentive Spirometry, demonstration Visit 1- Begin discharge instruction for patient family and/ or caregiver using teach back method- 1. Signs and symptoms of infection 2. Disease characteristics 3. Medicines and side effects 4. Foods and nutrition/ appetite 5. Infection control/ hand washing/ hygiene Visit 2- Continue teaching 1. Discharge instructions- include additional information on smoking cessation , Visit 3- Continue teaching- 1. Cough and deep breathing, incision monitoring. For any questions please call : / [facility] [phone] Incentive spirometry Q1 hr x 10, while awake, also use acapella device hourly whole awake chest wall Precautions: NO pushing or pulling, ( pt must use chest pillow to support chest with all activities and with coughing Daily incision care: ok to shower daily, no tub bath. Wash all incisions with liquid dial soap, clean wash cloth to each site, rinse and pat dry. Observe for any signs of infection, such as drainage which is dark yellow, agustin, green or foul smelling. Immediately report to the surgeon any drainage from the chest incision, or legs, and for any abnormal drainage from the chest tube sites. Notify surgeon if any temp >101.5 degrees F. When specialty dressing removed/ or if you do not have one, continue to shower daily as above, then rinse and pat incision dry and paint with betadine daily x 5 days. Allow steri strips to fall off if you have any. Avoid lotions, creams, salves, oils, etc. for the first month F/U appointment: as per [facility] instructions: PCP in 2 weeks, CV surgeon 2 weeks, Block Paver 3-4 weeks For any questions regarding incisions/ dressing / meds / post op care or above Symptoms, Sunday 8am-5pm Heart & Vascular Surgery Office ( Dr. Leija & Dr. Peck), After Hours / Nights (5pm -8am) Weekends and Holidays Please call [facility] ([facility]) Charge Nurse I have seen patient Selvin Farah on 08/30/17. My clinical findings support the need for the requested home health care services because: Deconditioned w/ increased weakness I certify that my clinical findings support that this patient is homebound because: Post-op weakness Jacqueline Lezama Aug 30, 2017 16:08
[2017-08-30] MEDS: ATORVASTATIN 80 MG TAB PO SCH (21:06)
[2017-08-30] MEDS: DOCUSATE CALCIUM 240 MG CAP PO SCH (21:07)
[2017-08-30] MEDS: PANTOPRAZOLE SOD 40 MG DELAYED RELEASE TAB PO SCH (21:07)
[2017-08-31] VITALS (29 sets, daily range): BP systolic 111–130; BP diastolic 68–77; PULSE 55–90; RESP 16–18; TEMP 98–98.4; O2SAT 91–96
[2017-08-31] MEDS: ACETAMINOPHEN/HYDROcodone 325 MG/10 MG TAB PO PRN ×5 (01:11→21:51)
[2017-08-31] MEDS: MORPHINE SULFATE 4 MG/ML INJ IV PRN ×5 (03:57→23:43)
--- NOTE | 2017-08-31 06:09 | RADRPT ---
EXAM DATE/TIME: 08/31/2017 04:53 [facility] COMPARISON: CHEST SINGLE AP, August 30, 2017, 5:06. INDICATIONS : Follow up pneumothorax. MEDICAL HISTORY : None. SURGICAL HISTORY : None. ENCOUNTER: Subsequent ACUITY: 3 days PAIN SCORE: 6/10 LOCATION: Bilateral chest FINDINGS: A single AP semierect portable view of the chest was obtained. The study is more Midinspiratory with crowding of the lung vasculature. The right-sided chest tube remains in place. The small right apical pneumothorax is not significantly changed and measures up to 1.8 cm. There is increased hazy opacity in both lungs right greater than left. The heart size appears mildly prominent. There is no effusion . CONCLUSION: 1. The right-sided chest tube remains in place with no significant change in the small right apical p neumothorax. 2. The study is more Midinspiratory with chronic lung vasculature an increased hazy opacity in both l ungs right greater than left. Johnnie Mondragon MD on August 31, 2017 at 6:04 Board Certified Radiologist. This report was verified electronically.
[2017-08-31] MEDS: FENOFIBRATE 145 MG TAB PO SCH (08:19)
[2017-08-31] MEDS: NABUMETONE 500 MG TAB PO SCH ×2 (08:19→21:41)
[2017-08-31] MEDS: SERTRALINE HCL 100 MG TAB PO SCH (08:20)
[2017-08-31] MEDS: QUEtiapine FUMARATE 100 MG TAB PO SCH ×2 (08:20→21:40)
[2017-08-31] MEDS: LEVOFLOXACIN 500 MG TAB PO SCH (08:20)
[2017-08-31] MEDS: ASPIRIN EC 81 MG TABEC PO SCH (08:20)
[2017-08-31] MEDS: ATENOLOL 25 MG TAB PO SCH ×2 (08:20→21:40)
[2017-08-31] MEDS: lamoTRIgine 100 MG TAB PO SCH (08:20)
[2017-08-31] MEDS: SODIUM CHLORIDE 0.9% FLUSH 10 ML FLUSH IV FLUSH SCH ×2 (08:21→21:45)
[2017-08-31] MEDS: BUDESONIDE-FORMOTEROL 160/4.5 MCG INHALER INH SCH ×2 (08:21→21:48)
--- NOTE | 2017-08-31 08:38 | HHI.PR ---
Subjective Remarks feels he over used the IS..ant chest soreness..not able to get deep breath. tender to palpation. Objective Vitals heart reg lung good air entry magali right chest tube abd s/nt ext no edema ant cw tenderness Vital Signs Date Time Temp Pulse Resp B/P (MAP) Pulse Ox O2 Delivery O2 Flow Rate FiO2 08/31/17 06:00 62 08/31/17 05:00 64 08/31/17 04:00 62 08/31/17 03:00 64 08/31/17 03:00 98.3 55 18 111/72 (85) 91 08/31/17 02:00 62 08/31/17 01:00 72 08/31/17 00:00 68 08/30/17 23:00 71 08/30/17 23:00 98.4 68 18 133/86 (102) 91 08/30/17 22:00 66 08/30/17 21:00 68 08/30/17 20:37 97 21 08/30/17 20:00 96 Room Air 08/30/17 20:00 98.4 71 18 119/72 (88) 96 08/30/17 20:00 72 08/30/17 19:00 68 08/30/17 18:01 72 08/30/17 17:00 66 08/30/17 16:00 68 08/30/17 15:30 98.2 66 18 109/70 (83) 95 08/30/17 15:00 70 08/30/17 14:00 62 08/30/17 13:01 69 08/30/17 12:00 102 08/30/17 11:15 97.8 73 18 113/62 (79) 96 08/30/17 11:00 71 08/30/17 10:00 76 08/30/17 09:00 66 08/31/17 08/31/17 09/01/17 15:00 23:00 07:00 Intake Total 480 ml Output Total 650 ml Balance -170 ml Intake Oral 480 ml Output Urine Total 600 ml Drainage Total 50 ml # Bowel Movements 0 Result Diagram: 08/28/175 08/28/175 Imaging Last Impressions Chest X-Ray 08/21/17 1436 Signed Impressions: Service Date/Time: Monday, August 21, 2017 14:43 - CONCLUSION: Very large right-sided pneumothorax with complete collapse of the right lung and minimal mediastinal shift to the left suggesting some degree of tension. Dr. Cox was called with the findings 3: 05 P.M. on 08/21/17. Krishan Roberts MD A/P Problem List: (1) Pneumothorax ICD Codes: J93.9 - Pneumothorax, unspecified Status: Acute Plan: sudden onset of central chest pain approximately 2 PM while at rest. Patient described the chest pain as sharp nonradiating, being by shortness of breath and diaphoresis. Chest x-ray was taken and revealed very large right-sided pneumothorax with complete collapse of the right lung and minimal mediastinal shift to the left suggesting some degree of tension. Chest tube was placed in the emergency department. Repeat chest x-ray revealed interval reinflation of the right lung post chest tube placement. - CXR (08/23) No pneumothorax. Stable right basilar atelectasis - repeat CXR (08/24) Small right apical pneumothorax measuring 16 mm. Bibasilar atelectasis. Cardiomegaly. - CT chest reveals moderated sized right apical pneumothorax with moderate to severe centrilobular emphysematous changes worse on the right. - cxr: 08/31..right chest tube. small apical ptx -Persistent Air Leak -Pt taken to OR 08/29 for vats/bulla resection/pleurodesis. -still with right chest tube. on water seal. small apical ptx await cts decision - cont nebs/oxygen -pain control -PT -dvt prophylaxis. (2) Bipolar disorder, unspecified ICD Codes: F31.9 - Bipolar disorder, unspecified Status: Chronic Plan: Continue patient's home Zoloft 200 mg by mouth daily, Seroquel 100 mg by mouth twice a day and Lamictal 200 mg by mouth daily (3) CAD (coronary artery disease) ICD Codes: I25.10 - CAD (coronary artery disease) Status: Chronic Plan: Continue patient's home atenolol 25 mg by mouth daily, atorvastatin 80 mg by mouth daily at bedtime, TriCor 145 mg by mouth daily (4) Constipation ICD Codes: K59.00 - Constipation, unspecified Status: Acute Plan: 08/25 Patient has not had a BM in 4 days, abd distended with hypoactive BS continue colace BID MOM and lactulose given KUB 08/25: Moderate constipation and ileus. No free air identified 08/26 patient did have BM after dulcolax supp and Relistor KUB 08/26 reviewed Moderate stool burden. Otherwise unremarkable exam. Encouraged patient to avoid narcotic use as much as possible, changed Percocet to Q6H pt given relistor x 2 Problem Qualifiers (1) Pneumothorax: Qualified Codes: J93.9 - Pneumothorax, unspecified Donald German MD Aug 31, 2017 08:38
--- NOTE | 2017-08-31 14:06 | PD.CAR.PN ---
CVT Progress Note Subjective/Hospital Course: A 57-year-old patient of Dr. Jarret Serra and Dr. Harrington presented on the after developing some sharp chest pain in the afternoon. He said he bent over to pick something up and then he felt a pop on Sunday. He was lifting some heavy objects on Sunday prior. He has a history of coronary artery disease and thought that it might be related to his cardiac history and he took an aspirin and some sublingual nitro with no improvement, so he proceeded to the emergency room. Upon ER admission, it revealed a large right-sided pneumothorax with complete collapse of the right lung and minimal mediastinal shift to the left, suggesting of some degree of tension. Chest tube was placed and repeat showed interval reinflation of the right lung post-chest tube. We were consulted due to persistent air leak. His chest x-ray this morning shows a persistent small right apical pneumo, bibasilar atelectasis, cardiomegaly. PAST MEDICAL HISTORY: Significant for coronary artery disease, detached retina, hypertension, hyperlipidemia, bipolar disorder, migraine headaches, osteoarthritis. cardiac catheterization in 1999 with a stent placement. Repeat cardiac catheterization in 2011 with in-stent restenosis. He is treated medically. He is followed by Dr. Gant. 08/27 pt has persistent continuous air leak for surgery on sun right VATS, possible thoracotomy, lobectomy 08/28 for surgery tomorrow 08/29 1. Right Video-Assisted Thoracoscopic Surgery (VATS). 2. Apical Segmental Bullae resection 3. Mechanical and Iodine Pleurodesis. 4. Intercostal Nerve Block 08/30 doing well on room air chest tube to water seal eval for removal in am still has small right apical ptx, unchanged 08/31 no air leak noted, cxr unchanged chest tube dc without difficulty right anterior chest wall incision iodoform dressing changed leave right lateral chest tube dressing in place x 48hrs check cxr this afternoon and in am / if stable then ok to dc home from [facility] standpoint Objective: GENERAL: A&O x 3 SKIN: Warm and dry. iodoform dressing to right anterior chest wall (prior chest tube site)/ dressing over prior right lateral chest tube HEAD: Normocephalic. EYES: No scleral icterus. No injection or drainage. NECK: Supple, trachea midline. No JVD or lymphadenopathy. CARDIOVASCULAR: Regular rate and rhythm without murmurs, gallops, or rubs. RESPIRATORY: Breath sounds equal bilaterally. No accessory muscle use. GASTROINTESTINAL: Abdomen soft, non-tender, nondistended. MUSCULOSKELETAL: No cyanosis, or edema. BACK: Nontender without obvious deformity. No CVA tenderness. Vital Signs Date Time Temp Pulse Resp B/P (MAP) Pulse Ox O2 Delivery O2 Flow Rate FiO2 08/31/17 11:15 98.4 77 18 124/77 (93) 91 08/31/17 08:01 94 Room Air 08/31/17 08:01 98.3 69 18 127/68 (87) 94 08/31/17 06:00 62 08/31/17 05:00 64 08/31/17 04:00 62 08/31/17 03:00 64 08/31/17 03:00 98.3 55 18 111/72 (85) 91 08/31/17 02:00 62 08/31/17 01:00 72 08/31/17 00:00 68 08/30/17 23:00 71 08/30/17 23:00 98.4 68 18 133/86 (102) 91 08/30/17 22:00 66 08/30/17 21:00 68 08/30/17 20:37 97 21 08/30/17 20:00 96 Room Air 08/30/17 20:00 98.4 71 18 119/72 (88) 96 08/30/17 20:00 72 08/30/17 19:00 68 08/30/17 18:01 72 08/30/17 17:00 66 08/30/17 16:00 68 08/30/17 15:30 98.2 66 18 109/70 (83) 95 08/30/17 15:00 70 Result Diagram: 08/28/17 0445 08/28/17 0445 Telemetry: NSR (1) CAD (coronary artery disease) Plan: on ASA, statin BB (2) Pneumothorax (3) Bipolar disorder, unspecified (4) s/p right VATS Plan: pulm toileting OOB, ambulate pain control CXR stable, chest tube removed without difficulty f/u cxr this afternoon and in am if stable then ok to dc home Problem Qualifiers (1) Pneumothorax: Qualified Codes: J93.9 - Pneumothorax, unspecified Jacqueline Lezama Aug 31, 2017 14:06
--- NOTE | 2017-08-31 15:19 | RADRPT ---
EXAM DATE/TIME: 08/31/2017 14:49 [facility] COMPARISON: CHEST SINGLE AP, August 31, 2017, 4:53. INDICATIONS : Evaluate for pneumothorax. Right chest tube removal. MEDICAL HISTORY : None. SURGICAL HISTORY : Coronary artery stent. ENCOUNTER: Subsequent ACUITY: 1 day PAIN SCORE: 0/10 LOCATION: Bilateral chest FINDINGS: A single view of the chest demonstrates a tiny right lateral pneumothorax. Minimal bibasilar densitie s with postsurgical changes right apex. Osseous structures are intact. CONCLUSION: Tiny lateral right pneumothorax. Shine Hudson MD on August 31, 2017 at 15:15 Board Certified Radiologist. This report was verified electronically.
[2017-08-31] MEDS: DOCUSATE CALCIUM 240 MG CAP PO SCH (21:40)
[2017-08-31] MEDS: ATORVASTATIN 80 MG TAB PO SCH (21:40)
[2017-08-31] MEDS: PANTOPRAZOLE SOD 40 MG DELAYED RELEASE TAB PO SCH (21:40)
[2017-09-01] VITALS (18 sets, daily range): BP systolic 103–138; BP diastolic 63–79; PULSE 60–70; RESP 16–20; TEMP 97.6–98.6; O2SAT 92–94
[2017-09-01] MEDS: ACETAMINOPHEN/HYDROcodone 325 MG/10 MG TAB PO PRN ×3 (02:26→13:31)
[2017-09-01] MEDS: MORPHINE SULFATE 4 MG/ML INJ IV PRN (03:29)
[2017-09-01] MEDS: QUEtiapine FUMARATE 100 MG TAB PO SCH (08:17)
[2017-09-01] MEDS: BUDESONIDE-FORMOTEROL 160/4.5 MCG INHALER INH SCH (08:17)
[2017-09-01] MEDS: LEVOFLOXACIN 500 MG TAB PO SCH (08:18)
[2017-09-01] MEDS: SERTRALINE HCL 100 MG TAB PO SCH (08:18)
[2017-09-01] MEDS: lamoTRIgine 100 MG TAB PO SCH (08:18)
[2017-09-01] MEDS: NABUMETONE 500 MG TAB PO SCH (08:18)
[2017-09-01] MEDS: ASPIRIN EC 81 MG TABEC PO SCH (08:18)
[2017-09-01] MEDS: FENOFIBRATE 145 MG TAB PO SCH (08:18)
[2017-09-01] MEDS: ATENOLOL 25 MG TAB PO SCH (08:18)
--- NOTE | 2017-09-01 08:18 | HHI.PR ---
Subjective Remarks ambulating. no sob feels ok except some msk pains. Objective Vitals heart reg lung cta abd /nt ext no edema right chest wall bandaged. bandages appear dry Vital Signs Date Time Temp Pulse Resp B/P (MAP) Pulse Ox O2 Delivery O2 Flow Rate FiO2 09/01/17 06:00 60 09/01/17 05:00 64 09/01/17 04:00 64 09/01/17 03:54 70 16 121/75 (90) 93 09/01/17 03:00 70 09/01/17 02:00 68 09/01/17 01:00 70 09/01/17 00:00 68 08/31/17 23:40 71 16 126/68 (87) 96 08/31/17 23:00 72 08/31/17 22:08 95 21 08/31/17 22:00 72 08/31/17 21:00 93 Room Air 08/31/17 21:00 78 08/31/17 20:00 98.1 90 16 130/70 (90) 93 08/31/17 20:00 90 08/31/17 19:00 76 08/31/17 18:01 70 08/31/17 17:00 72 08/31/17 16:01 70 08/31/17 15:01 98.0 75 18 121/69 (86) 94 08/31/17 15:00 72 08/31/17 14:00 66 08/31/17 13:01 74 08/31/17 12:00 80 08/31/17 11:15 98.4 77 18 124/77 (93) 91 08/31/17 11:00 76 08/31/17 10:00 70 08/31/17 09:00 68 Result Diagram: 08/28/17 0445 08/28/17 0445 Imaging Last Impressions Chest X-Ray 08/21/17 1436 Signed Impressions: Service Date/Time: Monday, August 21, 2017 14:43 - CONCLUSION: Very large right-sided pneumothorax with complete collapse of the right lung and minimal mediastinal shift to the left suggesting some degree of tension. Dr. Cox was called with the findings 3: 05 P.M. on 08/21/17. Krishan Roberts MD A/P Problem List: (1) Pneumothorax ICD Codes: J93.9 - Pneumothorax, unspecified Status: Acute Plan: sudden onset of central chest pain approximately 2 PM while at rest. Patient described the chest pain as sharp nonradiating, being by shortness of breath and diaphoresis. Chest x-ray was taken and revealed very large right-sided pneumothorax with complete collapse of the right lung and minimal mediastinal shift to the left suggesting some degree of tension. Chest tube was placed in the emergency department. Repeat chest x-ray revealed interval reinflation of the right lung post chest tube placement. - CXR (08/23) No pneumothorax. Stable right basilar atelectasis - repeat CXR (08/24) Small right apical pneumothorax measuring 16 mm. Bibasilar atelectasis. Cardiomegaly. - CT chest reveals moderated sized right apical pneumothorax with moderate to severe centrilobular emphysematous changes worse on the right. - cxr: 08/31..right chest tube. small apical ptx -Persistent Air Leak -Pt taken to OR 08/29 for vats/bulla resection/pleurodesis. -still with right chest tube. on water seal. small apical ptx chest tube removed on 08/31 await final cxr..if stable then d/c home today if ok with CTS - cont nebs/oxygen -pain control -PT -dvt prophylaxis. (2) Bipolar disorder, unspecified ICD Codes: F31.9 - Bipolar disorder, unspecified Status: Chronic Plan: Continue patient's home Zoloft 200 mg by mouth daily, Seroquel 100 mg by mouth twice a day and Lamictal 200 mg by mouth daily (3) CAD (coronary artery disease) ICD Codes: I25.10 - CAD (coronary artery disease) Status: Chronic Plan: Continue patient's home atenolol 25 mg by mouth daily, atorvastatin 80 mg by mouth daily at bedtime, TriCor 145 mg by mouth daily (4) Constipation ICD Codes: K59.00 - Constipation, unspecified Status: Acute Plan: 08/25 Patient has not had a BM in 4 days, abd distended with hypoactive BS continue colace BID MOM and lactulose given KUB 08/25: Moderate constipation and ileus. No free air identified 08/26 patient did have BM after dulcolax supp and Relistor KUB 08/26 reviewed Moderate stool burden. Otherwise unremarkable exam. Encouraged patient to avoid narcotic use as much as possible, changed Percocet to Q6H pt given relistor x 2 Problem Qualifiers (1) Pneumothorax: Qualified Codes: J93.9 - Pneumothorax, unspecified Donald German MD Sep 01, 2017 08:18
[2017-09-01] MEDS: SODIUM CHLORIDE 0.9% FLUSH 10 ML FLUSH IV FLUSH SCH (08:19)
--- NOTE | 2017-09-01 11:15 | RADRPT ---
EXAM DATE/TIME: 09/01/2017 10:51 [facility] COMPARISON: CHEST SINGLE AP, August 31, 2017, 14:49. CHEST PA & LAT, August 27, 2017, 16:29. INDICATIONS : Follow-up for right pneumothorax. Chest tube removed. MEDICAL HISTORY : None. SURGICAL HISTORY : Coronary artery stent. ENCOUNTER: Subsequent ACUITY: 2 days PAIN SCORE: 0/10 LOCATION: Bilateral chest FINDINGS: Interval improvement of the right-sided pneumothorax with very tiny right apical pneumothorax measuri ng 15 mm still noted. Scarring is noted within right midlung field. The heart is stable. No focal inf iltrate is noted. CONCLUSION: Interval improvement of the right-sided pneumothorax with very tiny right apical pneu mothorax still noted. Krishan Roberts MD on September 01, 2017 at 11:10 Board Certified Radiologist. This report was verified electronically.
[2017-09-01] MEDS ORDERED: HYDR-3583 PO (12:22)
--- NOTE | 2017-09-01 12:24 | HHI.DCPOC ---
Discharge Care Plan Diagnosis: (1) Bronchopleural fistula (2) s/p right VATS (3) Pneumothorax (4) Constipation Goals to Promote Your Health * To prevent worsening of your condition and complications * To maintain your health at the optimal level Directions to Meet Your Goals Take your medications as prescribed Follow your dietary instruction Follow activity as directed Keep your appointments as scheduled Take your immunizations and boosters as scheduled If your symptoms worsen call your PCP, if no PCP go to Urgent Care Center or Emergency Room Smoking is Dangerous to Your Health. Avoid second hand smoke Call the 24-hour hour crisis hotline for domestic abuse at Donald German MD Sep 01, 2017 12:24
== END 2017-09-01 16:08 | disposition home or self-care (01) | DRG 164 ==
LOC: NEPE 14:17 → NEDA 16:28 → OBSVTOIN 16:44 → HCIS 20:52 → HCPC 08-29 14:10 → HCIS 08-29 16:21
PROVIDERS: ADMIT Hospitalist; ATTEND Hospitalist
PROC: 0W9930Z Drainage of Right Pleural Cavity with Drainage Device, Percutaneous Approach (ICD-10-PCS; 2017-08-21)
PROC: 3E0T3BZ Introduction of Anesthetic Agent into Peripheral Nerves and Plexi, Percutaneous Approach (ICD-10-PCS; 2017-08-29)
PROC: 0BBK4ZZ Excision of Right Lung, Percutaneous Endoscopic Approach (ICD-10-PCS; principal; 2017-08-29 11:51)
PROC: 0B5N4ZZ Destruction of Right Pleura, Percutaneous Endoscopic Approach (ICD-10-PCS; 2017-08-29 11:51)
DX: J86.0 Pyothorax with fistula (principal); J93.82 Other air leak; J43.9 Emphysema, unspecified; I10 Essential (primary) hypertension; K56.7 Ileus, unspecified; J98.11 Atelectasis; I25.10 Atherosclerotic heart disease of native coronary artery without angina pectoris; Z95.5 Presence of coronary angioplasty implant and graft; E66.9 Obesity, unspecified; Z68.34 Body mass index [BMI] 34.0-34.9, adult; I25.2 Old myocardial infarction; E78.5 Hyperlipidemia, unspecified; K59.00 Constipation, unspecified; M19.90 Unspecified osteoarthritis, unspecified site; G43.909 Migraine, unspecified, not intractable, without status migrainosus; F17.290 Nicotine dependence, other tobacco product, uncomplicated; F31.9 Bipolar disorder, unspecified; Z82.5 Family history of asthma and other chronic lower respiratory diseases; Z82.49 Family history of ischemic heart disease and other diseases of the circulatory system; Z88.0 Allergy status to penicillin; M54.9 Dorsalgia, unspecified; L53.8 Other specified erythematous conditions
CPT/HCPCS: 71045; 71046; 71250; 74018; 80048; 80053; 81001; 82550; 82552; 83735; 83880; 84484; 85025; 85610; 85730; 86850; 86900; 86901; 88305; 88307; 93005; 94150; 94640; 94664; C9290; J1100; J1170; J1885; J2212; J2250; J2270; J2405; J2710; J2930; J3010; J3370; J7040; J7613

== ENCOUNTER → 2017-10-04 | Outpatient (CLI) | payer OTHER ==
[~2017-10-04] MED LIST changes: -ATEN-100 PO; +ATEN1TAB73 PO; -ESZO3 PO; -FENO1TAB76 PO; +FENO50TA PO; +HYDR-3583 PO; -LEVA250T14 PO; +LIPI80TA PO; -LIPI80TA16 PO; +LORA-474 PO; -LORA0.5T PO; +NABU1TAB33 PO; -NITR0.2D TD; +NITR0.4S SL; -OMEG1CAP53 PO; -SERT100 PO; -TRAM100T19 PO; -VERA27.5; +ZOLO100T PO
--- NOTE | 2017-10-04 13:12 | RADRPT ---
EXAM DATE/TIME: 10/04/2017 13:04 [facility] COMPARISON: CHEST PA & LAT, September 01, 2017, 10:51. INDICATIONS : Cough, short of breath, chest pain. MEDICAL HISTORY : Myocardial infarction. SURGICAL HISTORY : Coronary artery stent. ENCOUNTER: Initial ACUITY: 3 weeks PAIN SCORE: 5/10 LOCATION: Bilateral chest FINDINGS: PA and lateral views of the chest demonstrate the lungs to be symmetrically aerated without evidence of mass, infiltrate or effusion. The cardiomediastinal contours are unremarkable. Osseous structure s are intact. CONCLUSION: No acute disease. There is no evidence of pneumonia. Johnnie Mondragon MD on October 04, 2017 at 13:10 Board Certified Radiologist. This report was verified electronically.
--- NOTE | 2017-10-09 10:23 | RSPPFT ---
DATE OF PROCEDURE: 10/04/17 COMMENTS: Spirometry is within normal limits. The FEV1/FVC ratio is 76%. Post-bronchodilator study demonstrated no significant change. Lung volumes demonstrated a reduced TLC suggesting restrictive disease. The RV/TLC ratio is increased indicating hyperinflation with air trapping. Diffusion capacity is moderately reduced. Flow volume loops are mildly atypical and suggest a restrictive pattern. IMPRESSION: 1. Mild restrictive disease. 2. No significant obstructive disease. 3. No significant change following use of bronchodilator. 4. Moderate loss in diffusion capacity.
== END ==
LOC: HRSP 12:07
PROVIDERS: ATTEND Internal Medicine Pulmonary Disease
DX: J93.9 Pneumothorax, unspecified (principal); R06.00 Dyspnea, unspecified; R07.9 Chest pain, unspecified; R05 Cough
CPT/HCPCS: 71046; 94060; 94726; 94729